=== PATIENT | male | born 1935 ===

== ENCOUNTER 2024-12-07 19:08 | Outpatient (NON) | payer MEDICARE, SELFPAY ==
--- OUTSIDE RECORDS SUMMARY | 2024-12-07 19:24 | XMS_ITS | Referral Summary ---
Author Organization [facility] A Address [address] [place] [address] Care Team Providers Care Lead Furnace Operator Name Role Phone Bryce Almeida MD Primary Care Provider [phone] Encounters Date Type Department Care Team Description 09/11/2024 10:45 AM CDT Office Visit [facility] at [address] [address] Nicole Wilkes PA Hand swelling (Primary Dx) from Last 3 Months Allergies Active Allergy Reactions Criticality Noted Date Comments Other Other (See comments) Low 09/06/2016 LINENS/PLASTIC BED COVERING OVER MATTRESS/CERTAIN SHEETS WITH BLEACH CAUSES BLISTERS NEEDS STERILE BEDDING LINENS/PLASTIC BED COVERING OVER MATTRESS/CERTAIN SHEETS WITH BLEACH CAUSES BLISTERS NEEDS STERILE BEDDING Povidone-Iodine Hives,Rash,Other (Se e comments) Medium 03/19/2015 Reaction: RASH----is okay with IV DYE Medications omeprazole (PriLOSEC) 20 mg capsule Take 1 capsule (20 mg total) by mouth daily 7 Active furosemide (LASIX) 20 mg tablet Take 1 tablet (20 mg total) by mouth daily 7 Active gabapentin (NEURONTIN) 300 mg capsule Take 2 capsules (600 mg total) by mouth nightly 7 Active multivitamin with minerals tablet Take 1 tablet by mouth daily 7 Active acetaminophen (TYLENOL) 325 mg tablet Take 2 tablets (650 mg total) by mouth daily Active beta carotene 10,000 unit capsule Take 7,500 Units by mouth daily Active losartan-hydroCH LOROthiazide (HYZAAR) 50-12.5 mg per tablet 2 Active allopurinoL (ZYLOPRIM) 100 mg tablet Take 1 tablet (100 mg total) by mouth 2 (two) times a day Active amLODIPine (NORVASC) 2.5 mg tablet Take 1 tablet (2.5 mg total) by mouth daily Active coenzyme Q10 100 mg capsule Take 3 capsules (300 mg total) by mouth daily Active warfarin (COUMADIN) 5 mg tablet Take 1 tablet (5 mg total) by mouth daily Active cholecalciferol (VITAMIN D-3) 16289 unit tablet Take 1 tablet (10,000 Units total) by mouth daily Active pyridoxine, vitamin B6, 200 mg tablet extended release Take 200 mg by mouth daily Active clopidogreL (PLAVIX) 75 mg tablet Take 1 tablet (75 mg total) by mouth daily Active ipratropium (ATROVENT) 21 mcg (0.03 %) nasal spray Administer 2 sprays into each nostril daily Active levothyroxine (SYNTHROID) 75 mcg tablet Take 1 tablet (75 mcg total) 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 Active ezetimibe (ZETIA) 10 mg tablet Take 1 tablet (10 mg total) by mouth daily 30 tablet 4 Active atorvastatin (LIPITOR) 40 mg tablet Take 1 tablet (40 mg total) by mouth every other day 4 02/25/20 25 Active warfarin (COUMADIN) 4 mg tablet Take 1 tablet (4 mg total) by mouth as directed 4 Active warfarin (COUMADIN) 1 mg tablet Take 1 tablet (1 mg total) by mouth as directed 4 Active isosorbide mononitrate ER (IMDUR) 60 mg 24 hr tablet Take 1 tablet (60 mg total) by mouth daily 90 tablet 3 5 07/05/19 26 Active carvediloL (COREG) 3.125 mg tablet TAKE 1 TABLET TWICE A DAY WITH MEALS 180 tablet 3 5 Active Active Problems Problem Noted Date Diagnosed Date Angina pectoris 02/21/2024 Assessment & Plan (02/21/2024 6:53 AM CDT): Differentials include stable angina, ACS (unstable angina vs NSTEMI), MSK pain, pleurisy, pneumonia, viral illness. Unlikely to be VTE as patient is within therapeutic range of inr (2.88) Initial troponins insignificant, EKG NSR with no ST elevation noted. Viral panel negative. No leukocytosis. S/p aspirin 324 mg po x1, nitrostat CXR nil acute Pt had seen Dr. Lord in office 02/15 for same issue, plan was for nuclear stress test at that point - Cardiology consult - Telemetry - Follow troponins - TTE - No need for therapeutic heparin at this time as troponins are insignificant - continue plavix, statin, beta rakesh - potential stress test - nitropaste prn for chest pain Obstructive sleep apnea 02/21/2024 Assessment & Plan (02/21/2024 2:39 AM CDT): On CPAP, mostly compliant - continue same Hypertension 02/21/2024 Assessment & Plan (02/21/2024 2:39 AM CDT): Per most recent office visit, on Losartan 50 mg po od, HCTZ 12.5 mg po od, Coreg 3.125 mg po bid, Amlodipine 2.5 mg daily - continue same Coronary artery disease 02/21/2024 Assessment & Plan (02/21/2024 2:39 AM CDT): Hx of PCI to the RCA and LAD per recent cardiology office visit TTE 11/2020: normal LV systolic function. EF 60-65%. Nuclear stress test 03/2019: normal myocardial perfusion, EF 64%. - continue plavix, statin, coreg 3.125 mg po bid, hyzaar 50-12.5 mg po od, lasix 20 mg po od Stage 3b chronic kidney disease 02/21/2024 Assessment & Plan (02/21/2024 1:05 AM CDT): Sees Dr. Mendez in the outpatient setting. Per recent office visit, baseline Cr 1.26-2.11. 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 Amlodipine recently reduced to 2.5 mg po od Cr on presentation 1.71, near baseline - continue to monitor renal function - avoid nephrotoxic agents History of sick sinus syndrome 02/21/2024 Assessment & Plan (02/21/2024 12:38 AM CDT): Noted on recent cardiology office note. 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, although he has been on warfarin since around 2003 and is uncertain as to if this was related to another clotting episode or not INR 2.88 on presentation; within therapeutic range Warfarin dose recently decreased from 6 mg to 5 mg po od - continue warfarin 5 mg po od Mixed hyperlipidemia 02/21/2024 Assessment & Plan (02/21/2024 1:07 AM CDT): Continue home atorvastatin 40 mg po od Hypothyroidism 02/21/2024 Assessment & Plan (02/21/2024 2:40 AM CDT): TSH today 1.16 - continue home levothyroxine 75 mcg po od Gastroesophageal reflux disease without esophagi tis 02/21/2024 Assessment & Plan (02/21/2024 1:11 AM CDT): On omeprazole 20 mg po od at home - continue with protonix while admitted Benign prostatic hyperplasia with lower urinary tract symptoms 02/21/2024 Assessment & Plan (02/21/2024 2:41 AM CDT): Previously on doxazosin Gout 02/21/2024 Assessment & Plan (02/21/2024 2:39 AM CDT): Continue home allopurinol 100 mg po bid Type 2 diabetes mellitus, wi out long-term current use of insulin 02/21/2024 Assessment & Plan (02/21/2024 2:41 AM CDT): Diet controlled. A1c today 6.3. - consistent carbohydrate diet - SSI History of nephrolithiasis 02/21/2024 Assessment & Plan (02/21/2024 1:03 AM CDT): s/p rt ureteral stenting and ECSWL History of prostate cancer 02/21/2024 Assessment & Plan (02/21/2024 2:18 AM CDT): Treated w/ prostatectomy in 1992 Anemia of chronic disease 02/21/2024 Assessment & Plan (02/21/2024 12:55 AM CDT): Secondary to CKD Hgb 10.9 on presentation Continue to monitor Hyponatremia 02/21/2024 Assessment & Plan (02/21/2024 1:25 AM CDT): Na 134 on presentation; likely transient - follow renal panel in a.m. Unstable angina 02/21/2024 Social History Tobacco Use Types Packs/Day Years Used Date Smoking Tobacco: Never Smokeless Tobacco: Never Tobacco Cessation:Counseling Given: Not Answered Alcohol Use Standard Drinks/Week Comments Yes 0 (1 standard drink = 0.6 oz pur e alcohol) occasional [employer] Utilities Answer Date Recorded In the past 12 months has [employer], gas, oil, or water [employer] threatened to shut off services in your home? No 02/21/2024 Social Connection and Isolat ion Panel [NHANES] Answer Date Recorded In a typical week, how many times do you talk on the phone with family, friends, or neighbors? More than three times a week 02/21/2024 How often do you get togethe r with friends or relatives? Twice a week 02/21/2024 How often do you attend chur ch or faith services? Never 02/21/2024 Do you belong to any clubs o r organizations such as jewish groups, unions, fraternal or athletic groups, or school groups? Yes 02/21/2024 How often do you attend meet ings of the clubs or organizations you belong to? 1 to 4 times per year 02/21/2024 Are you , , di vorced, , never , or living with a partner? 02/21/2024 Overall Financial Resource Strain (CARDIA) Answe r Date Recorded How hard is it for you to pa y for the very basics like food, housing, medical care, and heating? Not hard at all 02/21/2024 Hunger Vital Sign Answer Date Recorded Within the past 12 months, y ou worried that your food would run out before you got the money to buy more. Never true 02/21/20 24 Within the past 12 months, t he food you bought just didn't last and you didn't have money to get more. Never true 02/21/2024 PRAPARE - Transportation Answer Date Re corded In the past 12 months, has l ack of transportation kept you from medical appointments or from getting medications? No 02/03 In the past 12 months, has l ack of transportation kept you from meetings, work, or from getting things needed for daily living? No 02/21/2024 Housing Stability Vital Sign Answer Logan e Recorded In the last 12 months, was t here a time when you were not able to pay the mortgage or rent on time? No 02/21/2024 In the past 12 months, how m any times have you moved where you were living? 0 02/21/2024 At any time in the past 12 m [facility], were you homeless or living in a jail (including now)? No 02/21/2024 Personal Safety Answer Date Recorded Have you ever been in or are you currently in a harmful physical or emotional relationship or is someone making you feel afraid or unsafe? Denies 04/23/2024 Education Answer Date Recorded What is the highest level of school you have completed or the highest degree you have received? 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 Gender Identity Not on file Sexual Orientation Not on file Last Filed Vital Signs Vital Sign Reading Time Taken Comments Blood Pressure 138/74 09/11/2024 10:43 AM CDT Pulse 68 09/11/2024 10:43 AM CDT Temperature 36.9 C (98.4 F) 09/11/2024 10:43 AM CDT Respiratory Rate 20 09/11/2024 10:43 AM CDT Oxygen Saturation 99% 09/11/2024 10:43 AM CDT Inhaled Oxygen Concentration - - Weight 113.9 kg (251 lb) 09/11/2024 10:43 AM CDT Height 180.3 cm (5' 11) 09/11/2024 10:43 AM CDT Body Mass Index 35.01 09/11/2024 10:43 AM CDT Plan of Treatment Not on file Medical Devices Implanted Type Area Supervisor Grounds Device Identifier Shelf Expiration Date Model / Serial / Lot [employer]af Stent Coronary Drug Eluting Rapid Exchange Synergy Xd [id number] [employer] [id number] - [id number] Implanted:Qty: 1 on 02/23/2024 by Micky Fried MD at [facility] [employer] 11/07/2025 [id number] / / [id number] [employer] Copper Mobile Synergy Xd Monorail 3.5mm 28mm 144cm Delivery System 1 Access [id number] - [id number] Implanted:Qty: 1 on 02/23/2024 by Micky Fried MD at [facility] [employer] 08/29/2025 [id number] 350 / / [id number] [employer] Angio-Seal Vip 6fr Closere Device [id number] - [id number] Implanted:Qty: 1 on 02/23/2024 by Micky Fried MD at [facility] [employer] 09/17/2024 [id number] / / [id number] Procedures Procedure Name Priority Date/Time Associated Diagnosis Comments BASIC METABOLIC PANEL Routine 03/29/2024 3:17 PM CDT Coronary artery disease involving kasaan coronary artery of kasaan heart without angina pectoris HEMOGLOBIN A1C Add-On 02/20/2024 9:51 PM CDT from Last 3 Months or Most Recently Relevant to Health Maintenance Results * (ABNORMAL) Basic metabolic panel (03/29/2024 3:17 PM CDT) Glucose 119 65 - 139 mg/dL [facility] Comment: Non-fasting reference interval BUN 51(H) 7 - 25 mg/dL [facility] Creatinine 1.77(H) 0.70 - 1.22 mg/dL [facility] eGFR 36(L) > OR = 60 mL/min/1.7 3m2 [facility] BUN/creat ratio 29(H) 6 - 22 (calc) [facility] Sodium 138 135 - 146 mmol/L [facility] Potassium, pl 4.2 3.5 - 5.3 mmol/L [facility] Chloride 103 98 - 110 mmol/L [facility] CO2 28 20 - 32 mmol/L [facility] Calcium 8.4(L) 8.6 - 10.3 mg/dL [facility] Blood 03/29/2024 3:17 PM CDT 03/29/2024 3:18 PM CDT Narrative [facility] - 03/30/2024 5:05 AM CDT FASTING:NO FASTING: NO Juan Lord MD LAB BLOOD ORDERABLES Final Result [facility] [address] [place] [address] * (ABNORMAL) Hemoglobin A1c (02/20/2024 9:51 PM CDT) Hgb A1C 6.2(H) 4.0 - 5.6 % Estimated Average Glucose 131 mg/dL [facility] Comment: The ADA recommends reporting an estimated Average Glucose (eAG) with all Hemoglobin A1c results using the equation derived from a study of 507 normal and diabetic adults. Minority populations were underrepresented and children were not included. (Diabetes Care 31:4305-4543, 2008). The eAG is not equivalent to a fasting glucose. Blood 02/20/2024 9:51 PM CDT 02/21/2024 12:51 AM CDT Sowmya Elizabeth MD LAB BLOOD ORDERABLES Fi nal Result [facility] ([place]) [facility] [place] [address] from Last 3 Months or Most Recently Relevant to Health Maintenance Insurance T MEDICARE T MEDICARE Advance Directives For more information, please contact: [phone] * Full Code (Latest Code Status on File) Date Activated Date Inactivated Comments 02/22/2024 6:00 PM 02/24/2024 4:08 PM * Full Code Date Activated Date Inactivated Comments 02/21/2024 12:08 AM 02/22/2024 6:00 PM Care Teams Lead Furnace Operator Relationship Specialty Start Date End Date Bryce Almeida MD [address] [place] [address] [facility] - General 03/29/19
--- OUTSIDE RECORDS SUMMARY | 2024-12-07 19:24 | XMS_ITS | Encounter Summary ---
Author Organization [facility] Address [address] [place] [address] Phone Care Team Providers Care Hospice Director Name Role Phone Bryce Almeida MD Primary Care Provider Chelo Soriano MD Unavailable Annette Ibarra APRN, [facility] Unavailable Reason for Visit * Reason Comments Medication Refill Encounter Details Date Type Department Care Team (Late st Contact Info) Description 08/20/2023 Refill [facility] - Internal Medicine [place] [address] [place] [address] Bryce Almeida MD [address] [place] [address] Medication Refill Social History Tobacco Use Types Packs/Day Years Used Date Smoking Tobacco: Never Passive Smoke Exposure: Never Smokeless Tobacco: Never Alcohol Use Standard Drinks/Week Comments No 0 (1 standard drink = 0.6 oz pur e alcohol) Rarely [facility] Utilities Answer Date Recorded In the past 12 months has [employer], gas, oil, or water company threatened to shut off services in your home? No 07/18/2023 Social Connection and Isolation Panel Answer Date Recorded In a typical week, how many times do you talk on the phone with family, friends, or neighbors? More than three times a week 07/18/2023 How often do you get togethe r with friends or relatives? More than three times a week 07/18/2023 How often do you attend chur ch or evangelical services? Never 07/18/2023 Do you belong to any clubs o r organizations such as oriental orthodox groups, unions, fraternal or athletic groups, or school groups? No 07/18/2023 How often do you attend meet ings of the clubs or organizations you belong to? Never 07/18/2023 Are you , , di vorced, , never , or living with a partner? 07/18/2023 AUDIT-C Answer Date Recorded Q1: How often do you have a drink containing alcohol? Never 07/18/2023 Q2: How many drinks containi ng alcohol do you have on a typical day when you are drinking? Patient does not drink Q3: How often do you have si x or more drinks on one occasion? Never 07/18/2023 Overall Financial Resource Strain (CARDIA) Answe r Date Recorded How hard is it for you to pa y for the very basics like food, housing, medical care, and heating? Not hard at all 07/18/2023 PHQ-2 Answer Date Recorded Total Score - Questions 1-9 0 07/06 [facility] - Occupational Stress Questionnaire Answer Date Recorded Do you feel stress - tense, restless, nervous, or anxious, or unable to sleep at night because your mind is troubled all the time - these days? Not at all 07/18/2023 Exercise Vital Sign Answer Date Recorde d On average, how many days pe r week do you engage in moderate to strenuous exercise (like a brisk walk)? 0 days 07/18/2023 On average, how many minutes do you engage in exercise at this level? 0 min 07/18/2023 Hunger Vital Sign Answer Date Recorded Within the past 12 months, y ou worried that your food would run out before you got the money to buy more. Never true 07/18/19 24 Within the past 12 months, t he food you bought just didn't last and you didn't have money to get more. Never true 07/18/2023 PRAPARE - Transportation Answer Date Re corded In the past 12 months, has l ack of transportation kept you from medical appointments or from getting medications? No 07/06 In the past 12 months, has l ack of transportation kept you from meetings, work, or from getting things needed for daily living? No 07/18/2023 Housing Stability Vital Sign Answer Logan e Recorded In the last 12 months, was t here a time when you were not able to pay the mortgage or rent on time? No 07/18/2023 In the last 12 months, how many places have you lived? 1 07/18/2023 In the last 12 months, was t here a time when you did not have a steady place to sleep or slept in a nursing home (including now)? No 07/18/2023 Sexually Active Control Partners Comments Not Currently Sex and Gender Information Value Date Recorded Sex Assigned at Not on file Legal Sex Male 11:43 PM CDT Gender Identity Not on file Sexual Orientation Not on file documented as of this encounter Miscellaneous Notes * Telephone Encounter - Misty Soliman RN - 08/21/2023 10:04 AM CDT Medication failed the protocol, provider to review and approve the medication order if appropriate. Requested Prescriptions Pending Prescriptions Disp Refills warfarin (COUMADIN) 4 MG Tablet [Pharmacy Med Name: WARFARIN TABS 4MG] 90 Tablet 3 Sig: TAKE 1 TABLET DAILY Warfarin Protocol Failed - 08/20/2023 11:37 PM Failed - CBC on record in the past year WBC Date Value Ref Range Status 07/29/2019 7.19 4.00 - 12.00 10(3)/mcL Final WBC ESTERASE Date Value Ref Range Status 07/29/2019 Negative Negative Final RBC Date Value Ref Range Status 07/29/2019 3.50 (L) 4.40 - 5.80 10(6)/mcL Final HEMATOCRIT (HCT) Date Value Ref Range Status 07/29/2019 34.1 (L) 38.0 - 50.0 % Final HEMOGLOBIN (HGB) Date Value Ref Range Status 07/29/2019 11.3 (L) 13.0 - 16.5 g/dL Final [facility] Date Value Ref Range Status 07/29/2019 97.4 (H) 82.0 - 96.0 fL Final [facility] Date Value Ref Range Status 07/29/2019 32.3 (H) 26.0 - 32.0 pg Final [facility] Date Value Ref Range Status 07/29/2019 33.1 31.0 - 36.0 g/dL Final Failed - Patient does not have referral for nurse managed warfarin, please send to provider for approval Passed - Visit with relevant provider in past 12 months or upcoming 90 days Recent Visits Date Type Provider Dept 08/02/23 Telemedicine Natalia Hernandez, MADIHA [facility] [place] 07/18/23 Office Visit Bryce Almeida MD [facility] [place] 04/12/23 Office Visit Bryce Almeida MD [facility] [place] 01/04/23 Office Visit Bryce Almeida MD [facility] [place] 09/27/22 Office Visit [facility]meida MD [facility] [place] Showing recent visits within past 365 days and meeting all other requirements Future Appointments Date Type Provider Dept 10/17/23 Appointment Bryce Almeida MD [facility] [place] Showing future appointments within next 90 days and meeting all other requirements Passed - Display Most Recent Dose (if blank, no data is available, check Anticoagulation activity) Passed - INR on record in the past 6 weeks INR Date Value Ref Range Status 07/10/2023 1.9 Final 04/12/2023 3.2 (A) 0.9 - 1.1 Final furosemide (LASIX) 20 MG Tablet [Pharmacy Med Name: FUROSEMIDE TABS 20MG] 90 Tablet 3 Sig: TAKE 1 TABLET DAILY Diuretics Protocol Failed - 08/20/2023 11:37 PM Failed - Serum potassium on record in past 12 months No results found for: POTASSIUM, POCTK Failed - Serum sodium on record in past 12 months No results found for: SODIUM Failed - GFR on record in past 12 months No results found for: GFRNA Passed - Blood pressure on record in past 12 months Clinician-entered: BP Readings from Last 3 Encounters: 07/18/23 132/68 04/12/23 126/52 01/04/23 114/56 Patient-entered: No data recorded Passed - Visit with relevant provider in past 12 months or upcoming 90 days Recent Visits Date Type Provider Dept 08/02/23 Telemedicine Natalia Hernandez PAC [facility] [place] 07/18/23 Office Visit Bryce Almeida MD [facility] [place] 04/12/23 Office Visit Bryce Almeida MD [facility] [place] 01/04/23 Office Visit Bryce Almeida MD [facility] [place] 09/27/22 [facility] [place] Show[facility] recent visits within past 365 days and meeting all other requirements Future Appointments Date Type Provider Dept 10/17/23 Appointment Bryce Almeida MD [facility] [place] Showing future appointments within next 90 days and meeting all other requirements documented in this encounter Plan of Treatment Upcoming Encounters Date Type Department Care Team (Late st Contact Info) Description 01/01/2025 11:40 AM CDT Office Visit [facility] - Internal Medicine [place] [address] [place] [address] Bryce Almeida MD [address] [place] [address] documented as of this encounter Visit Diagnoses Not on filedocumented in this encounter Additional Health Concerns Infection Onset Date Last Indicated Resolved Time Respiratory Rule-Out 05/21/2024 05/21/2024 024 9:50 AM PURCHASING DIRECTOR COVID - 19 05/21/2024 05/21/2024 05/21/2024 9:49 AM PURCHASING DIRECTOR Assessment Noted Time PHQ-9 Depression Total Score: 0 07/18/19 24 11:25 AM PURCHASING DIRECTOR documented as of this encounter Care Teams Hospice Director Relationship Specialty Start Date End Date Bryce Almeida MD [address] [place] [address] PCP - General Internal Medicine 07/21/15 Chelo Soriano MD [address] [place] [address] General Surgery 10/13/15 Annette Ibarra APRN, [facility] [address] [place] [address] Nurse Practitioner Advanced Practice Nurse 05/08/24 documented as of this encounter
--- OUTSIDE RECORDS SUMMARY | 2024-12-07 19:24 | XMS_ITS | Encounter Summary ---
Author Organization [facility] Address [address] [place] [address] Phone Care Team Providers Care Rod Bending Machine Operator Name Role Phone Bryce Almeida MD Primary Care Provider Chelo Soriano MD Unavailable Annette Ibarra APRN, BINGO ATTENDANT Unavailable Reason for Visit * Reason Comments Medication Refill Encounter Details Date Type Department Care Team (Late st Contact Info) Description 08/01/2023 Refill [facility] - Internal Medicine [place] [address] [place] [address] Bryce Almeida MD [address] [place] [address] Medication Refill Social History Tobacco Use Types Packs/Day Years Used Date Smoking Tobacco: Never Passive Smoke Exposure: Never Smokeless Tobacco: Never Alcohol Use Standard Drinks/Week Comments No 0 (1 standard drink = 0.6 oz pur e alcohol) Rarely [facility] Utilities Answer Date Recorded In the past 12 months has [email or web address] electric, gas, oil, or water company threatened [...] often do you attend chur ch or sikh services? Never 07/18/2023 Do you belong to any clubs o r organizations such as jainism groups, unions, fraternal or athletic groups, or [...] Total Score - Questions 1-9 0 07/06 [facility] - Occupational Stress [...] place to sleep or slept in a halfway (including now)? No 07/18/2023 Sexually Active Control Partners Comments Not Currently Sex and Gender Information Value Date Recorded Sex Assigned at Not on file Legal Sex Male 11:43 PM CDT Gender Identity Not on file Sexual Orientation Not on file documented as of this encounter Miscellaneous Notes * Telephone Encounter - Misty Soliman RN - 08/02/2023 8:31 AM CST Medication failed the protocol, provider to review and approve the medication order if appropriate. Requested Prescriptions Pending Prescriptions Disp Refills levothyroxine (SYNTHROID) 50 MCG Tablet [Pharmacy Med Name: L-THYROXINE (SYNTHROID) TABS 50MCG] 90 Tablet 3 Sig: TAKE 1 TABLET DAILY Thyroid Hormones Protocol Failed - 08/01/2023 11:26 PM Failed - Normal TSH in past 12 months No results found for: TSH Passed - Visit with relevant provider in past 12 months or upcoming 90 days Recent Visits Date Type Provider Dept 07/18/23 Office Visit Bryce Almeida MD [facility] [place] 04/12/23 Office Visit Bryce Almeida MD [facility] [place] 01/04/23 Office Visit Bryce Almeida MD [facility] [place] 09/27/22 Office Visit Bryce Almeida MD [facility] [place] Showing recent visits within past 365 days and meeting all other requirements Future Appointments Date Type Provider Dept 10/17/23 Appointment Bryce Almeida MD [facility] [address] Showing future appointments within next 90 days and meeting all other requirements N PIPE MAKER METAL documented in this encounter Plan of Treatment Upcoming Encounters Date Type Department Care Team (Late st Contact Info) Description 01/01/2025 11:40 AM CDT Office Visit [facility] - Internal Medicine - [place] [address] [place] [id number] Bryce Almeida MD [address] [place] [address] documented as of this encounter Visit Diagnoses Not on filedocumented in this encounter Additional Health Concerns Infection Onset Date Last Indicated Resolved Time Respiratory Rule-Out 08/02/2023 08/02/2023 024 2:58 PM ORGAN PIPE MAKER METAL Influenza 08/02/2023 08/02/2023 08/09/2023 12:1 6 AM ORGAN PIPE MAKER METAL Respiratory Rule-Out 05/21/2024 05/21/2024 024 9:50 AM ORGAN PIPE MAKER METAL COVID - 19 05/21/2024 05/21/2024 05/21/2024 9:49 AM ORGAN PIPE MAKER METAL Assessment Noted Time PHQ-9 Depression Total Score: 0 07/18/19 24 11:25 AM ORGAN PIPE MAKER METAL documented as of this encounter Care Teams Rod Bending Machine Operator Relationship Specialty Start Date End Date Bryce Almeida MD [address] [place] [address] PCP - General Internal Medicine 07/21/15 Chelo Soriano MD [address] [place] [address] General Surgery 10/13/15 Annette Ibarra APRN, BINGO ATTENDANT [address] [place] [address] Nurse Practitioner Advanced Practice Nurse 05/08/24 documented as of this encounter
--- OUTSIDE RECORDS SUMMARY | 2024-12-07 19:24 | XMS_ITS | Continuity of Care Document ---
Author Name [facility] Organization [facility] Care Team Providers Care Nutrition Faculty Member Name Role Phone [facility] Unavailable Unavailable Problems Combined list of problems from Department of Defense and [facility] Affairs facilities. It does not include entries that were removed or entered in error. Problem Status Onset Date Problem Type Date of Resolution Comments Source Anemia Active Condition [facility] Arthritis Active Condition [facility] Benign essential hypertension Active Condition [facility] Benign hypertension Active Condition [facility] Blood glucose abnormal Active Condition [facility] Coronary arteriosclerosis Active Condition Sep 14 3 Entered By: ANISH NICOLE Comment: 1 stent 2008 [facility] Disorder of hip joint Active Condition Sep 14, 2012 Entered By: ANISH NICOLE Comment: Lt hip replacement 2012 Entered By: ANISH NICOLE Comment: Rt hip replacement 1990 [facility] Gastroesophageal Reflux Disease Active Condition [facility] Gout Active Condition [facility] Hernia of anterior abdominal wall Active Condition [facility] Hyperlipidemia Active Condition [facility] Hypothyroidism Active Condition [facility] Knee pain Active Condition [facility] Lumbar post-laminectomy syndrome Active Condition [facility] Malignant tumor of prostate Active Condition Sep 14, 2012 Entered By: ANISH NICOLE Comment: prostatectomy 1993 per vet [facility] Neuropathy Active Condition [facility] Obesity Active Condition [facility] Sleep apnea Active Condition Sep 14, 2012 Entered By: ANISH NICOLE Comment: nonVA CPAP [facility] Diagnosis: ICD-10-CM H25.813 Combined forms of age-related cataract, bilateral Active Diagnosis [facility] Diagnosis: ICD-10-CM H25.13 Age-related nuclear cataract, bilateral Active Diagnosis [facility] Diagnosis: ICD-10-CM H90.3 Sensorineural hearing loss, bilateral Active Diagnosis [facility] Medications Combined list of outpatient medications from Department of Defense and Veterans Affairs facilities.Medications provided include 1) outpatient medications from the last 15 months, and 2) patient-reported medications. Medication Details Route Status Patient Instructions Prescription Expires Prescription Number Last Dispense Date Ordering Provider Order Date Order Qty Source ASPIRIN 81MG TAB,EC TAKE ONE TABLET BY MOUTH ONCE A DAY ORAL ACTIVE ANISH NICOLE 2012 [facility] CARVEDILOL 25MG TAB TAKE ONE-HALF TABLET BY MOUTH TWICE A DAY ORAL ACTIVE ANISH NICOLE 2014 [facility] CHOLECALCIF MONIQUE 25MCG (1,000UNIT) TAB TAKE ONE TABLET BY MOUTH ONCE A DAY ORAL ACTIVE ANISH NICOLE 2012 [facility] DOXAZOSIN MESYLATE 4MG TAB TAKE ONE-HALF TABLET BY MOUTH AT BEDTIME ORAL ACTIVE ANISH NICOLE 2012 [facility] FISH OIL 1000MG (500MG DHA/EPA) CAP,ORAL TAKE 1 CAPSULE BY MOUTH TWICE A DAY ORAL ACTIVE ANISH NICOLE 2012 [facility] FUROSEMIDE 20MG TAB TAKE ONE TABLET BY MOUTH THREE TIMES PER WEEK ORAL ACTIVE ANISH NICOLE 2013 [facility] GABAPENTIN 300MG CAP TAKE 2 CAPSULES BY MOUTH TWICE A DAY ORAL ACTIVE RONY NICOLEA A 2012 [facility] HYDROCHLORO THIAZIDE 12.5MG/LOSA RTAN POTASSIUM 50MG TAB TAKE ONE TABLET BY MOUTH EVERY MORNING ORAL ACTIVE ANISH NICOLE 2013 [facility] LEVOTHYROXI NE NA 50MCG TAB (SYNTHROID) TAKE ONE TABLET BY MOUTH EVERY MORNING BEFORE A MEAL ORAL ACTIVE ANISH NICOLE 2012 [facility] MULTIVITAMI NS CAP/TAB TAKE ONE TABLET BY MOUTH ONCE A DAY ORAL ACTIVE ANISH NICOLE 2013 [facility] NORTRIPTYLI NE HCL 25MG CAP TAKE 1 CAPSULE BY MOUTH ONCE A DAY ORAL ACTIVE COREY, ANISH A 2012 [facility] OLOPATADINE HCL 0.2% SOLN,OPH INSTILL 1 DROP IN BOTH EYES ONCE A DAY FOR ALLERGIC CONJUNCT IVITIS OPHTHA LMIC ACTIVE 11/16/2025 [id number] SHANIQUE BARAJAS E 2024 10 [facility] PRAVASTATIN NA 40MG TAB TAKE ONE TABLET BY MOUTH EVERY EVENING ORAL ACTIVE COREY, ANISH A 2012 [facility] PROBENECID 500MG TAB TAKE ONE TABLET BY MOUTH ORAL ACTIVE COREY, ANISH A 2012 [facility] PYRIDOXINE HCL 100MG TAB TAKE ONE TABLET BY MOUTH ONCE A DAY ORAL ACTIVE COREY, ANISH A 2012 [facility] TRAMADOL HCL 50MG TAB TAKE ONE TABLET BY MOUTH TWICE A DAY ORAL ACTIVE COREY, ANISH A 2012 [facility] WARFARIN NA 5MG TAB TAKE 1.5 TABLETS BY MOUTH EVERY EVENING ORAL ACTIVE ANISH NICOLE A 2012 [facility] Allergies, Adverse Reactions, Alerts Combined list of allergies from Department of Defense and Veterans Affairs facilities. It does not include entries that were removed or entered in error. Substance Category Reaction Severity Reaction type Status Date Reported Comments Source BETADINE Propensity to adverse reactions to drug (finding) Swelling active 09/14/2012 [facility] Immunizations Combined list of available immunizations from the Department of Defense and Veterans Affairs facilities. Immunization Series Date Given Administered By Site Reaction Lot Number CVX Code Drug Government Contracts Manager Status Comments Source INFLUENZA, UNSPECIFIED FORMULATION 2013 88 complet ed [facility] INFLUENZA, UNSPECIFIED FORMULATION 2012 88 complet ed [facility] INFLUENZA, UNSPECIFIED FORMULATION 2011 88 complet ed [facility] TDAP [address] [facility] PNEUMOCOCCAL, UNSPECIFIED FORMULATION 2005 109 complet ed [facility] Encounters Combined list of: 1) Encounters from Department of Veterans Affairs facilities going backup to the last 18 months, not all [place] inpatient encounters are included; 2) Encounters from the Department of Defense facilities going backup to 280 months. Location Location Details Encounter Type Encounter Number Reason For Visit Attending Provider ADM Date DC Date Status Disposition Source [facility] FITTING/CH ECKING 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 neural hearing loss, RADHA Lambert 06/22 [facility] TYMPANOMET RY & REFLEX THRESH [id number] Diagnos is: ICD-10- CM H90.3 Sensori neural hearing loss, RADHA Lambert 06/22 [facility] HEARING AID SUP/ACCESS /DEV [id number] Diagnos is: ICD-10- CM H90.3 Sensori neural hearing loss, NELY Kidd 09/25 [facility] COMPRE OPH EXAM EST PT 1/> [id number] Diagnos is: ICD-10- CM H25.13 Age-rel ated nuclear jeffrey thernandez A LLISON E 11/23 [facility] Outpatient Encounter [id number] 09/19 [facility] OFFICE O/P EST MOD 30 MIN [id number] Diagnos is: ICD-10- CM H25.813 Combine d forms of age-rel ated catarac thernandez,A LLISON E 11/15 [facility] Social History Combined list of available smoking, tobacco, and other social history from Department of Defense and Veterans Affairs facilities. Social History Type Response Date Comment Sourc e Tobacco smoking status NHIS LIFETIME NON-USER OF TOBACCO 10/31/2014 [facility] History of tobacco use LIFETIME NON-USER OF TOBACCO 09/30/2013 [facility] History of tobacco use QUIT TOBACCO >7 Y EARS AGO 09/14/2012 [facility]
--- OUTSIDE RECORDS SUMMARY | 2024-12-07 19:25 | XMS_ITS | Clinical Summary ---
Author Organization [facility] Address [address] [place] [address] Care Team Providers Care Lump Inspector Name Role Phone Bryce Almeida MD Primary Care Provider [phone] Allergies Active Allergy Reactions Criticality Noted Date [...] by mouth daily Active cholecalciferol (VITAMIN D-3) 80117 unit tablet Take 1 tablet (10,000 Units [...] 1 tablet (75 mcg total) by mouth teacher early childhood development before breakfast Active ezetimibe (ZETIA) 10 mg [...] mg po bid Type 2 diabetes mellitus, [facility] long-term current use of insulin 02/21/2024 Assessment [...] renal panel in a.m. Unstable angina 02/21/2024 Encounters Date Type Department Care Team Description 09/11/2024 10:45 AM CDT Office Visit [facility] at [address] [address] Nicole Wilkes PA Hand swelling (Primary Dx) from Last 3 Months Surgical History Surgery Date Site/Laterality Comments CARDIAC CATHETERIZATION CHOLECYSTECTOMY TOTAL KNEE ARTHROPLASTY Left TOTAL HIP ARTHROPLASTY Bilateral Medical History Medical History Date Comments Thyroid disease Chest pain Sleep apnea Chronic kidney disease Coronary artery disease 02/21/2024 Hypertension 02/21/2024 Obstructive sleep apnea 02/21/2024 History of DVT (deep vein thrombosis) 02/21/2024 Mixed hyperlipidemia 02/21/2024 Gastroesophageal reflux disease without esophagi tis 02/21/2024 Benign prostatic hyperplasia with lower urinary tract symptoms 02/21/2024 Gout 02/21/2024 Type 2 diabetes mellitus, [facility] long-term current use of insulin (HCC) 02/21/2024 History of nephrolithiasis 02/21/2024 History of prostate cancer 02/21/2024 Anemia of chronic disease 02/21/2024 Family History Medical History Relation Name Comments Heart disease Brother Stroke Father Cancer Maternal Grandfather Tuberculosis Maternal Grandmother Heart disease Mother Stroke Paternal Grandfather Stroke Paternal Grandmother Relation Name Status Comments Brother Father Maternal Grandfather Maternal Grandmother Mother Paternal Grandfather Paternal Grandmother Social History Tobacco Use Types Packs/Day Years Used Date Smoking Tobacco: Never Smokeless Tobacco: Never Tobacco Cessation:Counseling Given: Not Answered Alcohol Use Standard Drinks/Week Comments Yes 0 (1 standard drink = 0.6 oz pur e alcohol) occasional [facility] Utilities Answer Date Recorded In the past 12 months has th e electric, gas, oil, or water company threatened [...] often do you attend chur ch or confucianist services? Never 02/21/2024 Do you belong to any clubs o r organizations such as scientologist groups, unions, fraternal or athletic groups, or [...] any time in the past 12 m [facility], were you homeless or living in a detention (including now)? No 02/21/2024 Personal Safety Answer [...] on file Legal Sex Male 11:13 AM MUCK MINER Gender Identity Not on file Sexual Orientation Not on file Obstetrics History Last Filed Vital Signs Vital Sign Reading [...] 09/11/2024 10:43 AM CDT Plan of Treatment Health Maintenance Due Date Last Done Comments Albumin Creatinine Ratio, Urine 1935 Depression Screening 1935 Dilated Eye Exam 1935 Foot Exam 1935 Lipid Panel 1935 Hepatitis B Screening 09/03/1953 Well Visit 65+ 09/03/2000 Pneumococcal vaccine 65+ (2 of 2 - PPSV23) 08/13/2014 06/18/2014, 03/05/2006 DTaP/Tdap/Td Vaccine (2 - Td or Tdap) 06/05/2019 06/05/2009 Zoster Vaccine (3 of 3) 07/07/2020 05/12/2020, 03/04 Covid-19 Vaccine (3 - 2023-2 5 season) 2024 08/26/2020, 08/04/2020 Hemoglobin A1C 08/19/2024 02/20/2024 Fall Risk Assessment 02/23/2025 02/24/2024 eGFR 03/29/2025 03/29/2024, 02/04, 02/23/2024, Additional history exists Influenza Vaccine Completed 03/19/2024, , 02/11/2020, Additional history exists Medical Devices Implanted Type Area Oven Operator Device Identifier Shelf Expiration Date Model / Serial / Lot [employer] Stent Coronary Drug Eluting Rapid Exchange Synergy Xd 3.14g62nt [place] [employer] [id number] - [id number] Implanted:Qty: 1 on 02/23/2024 by Micky Fried MD at [facility] [employer] 11/07/2025 [id number] / / [id number] [employer] Synergy Xd Monorail 3.5mm 28mm 144cm Delivery System 1 Access [id number] - [id number] Implanted:Qty: 1 on 02/23/2024 by Micky Fried MD at [facility] [employer] 08/29/2025 [id number] 350 / / [id number] [employer]Finder Angio-Seal Vip 6fr Closere Device [id number] - [id number] Implanted:Qty: 1 on 02/23/2024 by Micky Fried MD at [facility] [employer] 09/17/2024 [id number] / / [id number] Procedures Procedure Name Priority Date/Time Associated Diagnosis Comments BASIC METABOLIC PANEL Routine 03/29/2024 3:17 PM CDT Coronary artery disease involving [place] coronary artery of [place] heart without angina pectoris HEMOGLOBIN A1C Add-On 02/20/2024 9:51 PM CDT from Last 3 Months or Most Recently Relevant to Health Maintenance Results * (ABNORMAL) Basic metabolic panel (03/29/2024 3:17 PM CDT) [facility] Glucose 119 65 - 139 mg/dL [facility] [...] LAB BLOOD ORDERABLES Final Result [facility] [address] [place] [address] * (ABNORMAL) Hemoglobin A1c (02/20/2024 9:51 PM CDT) Hgb A1C 6.2(H) 4.0 - 5.6 % Estimated Average Glucose 131 mg/dL [facility] ([place]) Comment: The ADA recommends reporting an estimated Average Glucose (eAG) with all Hemoglobin A1c results using the equation derived from a study of 507 normal and diabetic adults. Minority populations were underrepresented and children were not included. (Diabetes Care 31:7504-4971, 2008). The eAG is not equivalent to a fasting glucose. Blood 02/20/2024 9:51 PM CDT 02/21/2024 12:51 AM CDT Sowmya Elizabeth MD LAB BLOOD ORDERABLES Fi nal Result [facility] ([place]) 1 [facility] [place] [address] from Last 3 Months or Most Recently Relevant to Health Maintenance Insurance T MEDICARE AET MEDICARE Advance Directives For more information, please contact: [phone] * Full Code (Latest Code Status on File) Date Activated Date Inactivated Comments 02/22/2024 6:00 PM 02/24/2024 4:08 PM * Full Code Date Activated Date Inactivated Comments 02/21/2024 12:08 AM 02/22/2024 6:00 PM Care Teams Lump Inspector Relationship Specialty Start Date End Date [place] [address] [place] [address] PCP - General 03/29/19
--- OUTSIDE RECORDS SUMMARY | 2024-12-07 19:25 | XMS_ITS | Encounter Summary ---
Author Organization [facility] Address [address] [place] [address] Phone Care Team Providers Care Director Airport Operations Name Role Phone Bryce Almeida MD Primary Care Provider Chelo Soriano MD Unavailable Annette Ibarra APRN, ROAD FREIGHT FIRER Unavailable Reason for Visit * Reason Comments Medication Refill Encounter Details Date Type Department Care Team (Late st Contact Info) Description 05/05/2020 [facility] [address] [place] [address] Bryce Almeida MD [address] [place] [address] Medication Refill Social History Tobacco Use Types Packs/Day Years Used Date Smoking Tobacco: Never Smokeless Tobacco: Never Alcohol Use Standard Drinks/Week Comments No 0 (1 standard drink = 0.6 oz pur e alcohol) Rarely Sex and Gender Information Value Date Recorded Sex Assigned at Not on file Legal Sex Male 11:43 PM CDT Gender Identity Not on file Sexual Orientation Not on file documented as of this encounter Miscellaneous Notes * Telephone Encounter - Annette Dunlap RN - 05/06/2020 7:43 AM CST Please review and sign. STRY TREE PRUNER documented in this encounter Plan of Treatment Upcoming Encounters Date Type Department Care Team (Late st Contact Info) Description 01/01/2025 11:40 AM CDT Office Visit [facility] - Internal Medicine [place] [address] [place] [id number] Bryce Almeida MD [address] [place] [address] documented as of this encounter Visit Diagnoses Not on filedocumented in this encounter Additional Health Concerns Infection Onset Date Last Indicated Resolved Time COVID - 19 Confirmed 03/12/2022 03/12/2022 022 12:16 AM CDT COVID - 19 06/15/2022 06/15/2022 06/25/2022 12:1 6 AM FORESTRY TREE PRUNER Influenza 06/15/2022 06/15/2022 06/22/2022 12:1 6 AM FORESTRY TREE PRUNER Respiratory Rule-Out 08/02/2023 08/02/2023 024 2:58 PM FORESTRY TREE PRUNER Influenza 08/02/2023 08/02/2023 08/09/2023 12:1 6 AM FORESTRY TREE PRUNER Respiratory Rule-Out 05/21/2024 05/21/2024 024 9:50 AM FORESTRY TREE PRUNER COVID - 19 05/21/2024 05/21/2024 05/21/2024 9:49 AM FORESTRY TREE PRUNER documented as of this encounter Care Teams Director Airport Operations Relationship Specialty Start Date End Date Bryce Almeida MD [address] [place] [address] PCP - General Internal Medicine 07/21/15 Chelo Soriano MD [address] [place] [address] General Surgery 10/13/15 Annette Ibarra APRN, ROAD FREIGHT FIRER [address] [place] [address] Nurse Practitioner Advanced Practice Nurse 05/08/24 documented as of this encounter
--- OUTSIDE RECORDS SUMMARY | 2024-12-07 19:25 | XMS_ITS | Encounter Summary ---
Author Organization [facility] Address [address] [place] [address] Phone Care Team Providers Care Carpet Journeyman Name Role Phone Bryce Almeida MD Primary Care Provider [phone] Chelo Soriano MD Unavailable Annette Ibarra APRN, DISTRIBUTION DISPATCHER Unavailable Encounter Details Date Type Department Care Team (Late st Contact Info) Description 10/29/2024 Results Follow-Up [facility] - Internal Medicine [facility] [address] [place] [address] Bryce Almeida MD [address] [place] [address] PROTIME (PT) (PROTHROMBIN TIME) Social History Tobacco Use Types Packs/Day Years Used Date Smoking Tobacco: Never Passive Smoke Exposure: Never Smokeless Tobacco: Never Alcohol Use Standard Drinks/Week Comments No 0 (1 standard drink = 0.6 oz pur e alcohol) Rarely [facility] Utilities Answer Date Recorded In the past 12 months has e electric, gas, oil, or water company threatened to shut off services in your home? Patient declined 09/11/2024 Social Connection and Isolation Panel Answer Date Recorded In a typical week, how many times do you talk on the phone with family, friends, or neighbors? Patient declined 09/11/2024 How often do you get togethe r with friends or relatives? Patient declined 09/11/2024 How often do you attend jain or baptism serv ices? Patient declined 09/11/2024 Do you belong to any clubs o r organizations such as jain groups, unions, fraternal or athletic groups, or school groups? Patient declined 09/11/2024 How often do you attend meet ings of the clubs or organizations you belong to? Patient declined 09/11/2024 Are you , , di vorced, , never , or living with a partner? Patient declined 09/11/2024 AUDIT-C Answer Date Recorded Q1: How often do you have a drink containing alc ohol? Patient declined 09/11/2024 Q2: How many drinks containi ng alcohol do you have on a typical day when you are drinking? Patient declined 09/11/2024 Q3: How often do you have si x or more drinks on one occasion? Patient declined 09/11/2024 Overall Financial Resource Strain (CARDIA) Answe r Date Recorded How hard is it for you to pa y for the very basics like food, housing, medical care, and heating? Somewhat hard 09/11/2024 PHQ-2 Answer Date Recorded Total Score - Questions 1-9 0 06/06 [facility] - Occupational Stress Questionnaire Answer Date Recorded Do you feel stress - tense, restless, nervous, or anxious, or unable to sleep at night because your mind is troubled all the time - these days? Patient declined 09/11/2024 Exercise Vital Sign Answer Date Recorde d On average, how many days pe r week do you engage in moderate to strenuous exercise (like a brisk walk)? Patient declined On average, how many minutes do you engage in exercise at this level? Patient declined 09/11/2024 Hunger Vital Sign Answer Date Recorded Within the past 12 months, y ou worried that your food would run out before you got the money to buy more. Patient declined Within the past 12 months, t he food you bought just didn't last and you didn't have money to get more. Patient declined 02/2025 PRAPARE - Transportation Answer Date Re corded In the past 12 months, has l ack of transportation kept you from medical appointments or from getting medications? No 02/2025 In the past 12 months, has l ack of transportation kept you from meetings, work, or from getting things needed for daily living? No 09/11/2024 Housing Stability Vital Sign Answer Logan e [...] place to sleep or slept in a residential (including now)? No 07/18/2023 Housing Stability Vital Sign Answer Logan e Recorded In the last 12 months, was t here a time when you were not able to pay the mortgage or rent on time? No 09/11/2024 Number of Times Moved in the Last Year Not on fi le 09/11/2024 At any time in the past 12 m [facility], were you homeless or living in a residential (including now)? No 09/11/2024 Sexually Active Control Partners Comments Not Currently Sex and Gender Information Value Date Recorded Sex Assigned at Not on file Legal Sex Male 11:43 PM CDT Gender Identity Not on file Sexual Orientation Not on file documented as of this encounter Plan of Treatment Upcoming Encounters Date Type Department Care Team (Late st Contact Info) Description 01/01/2025 11:40 AM CDT Office Visit [facility] - Internal Medicine - [place] [address] [place] [address] Bryce Almeida MD [address] [place] [address] documented as of this encounter Visit Diagnoses Not on filedocumented in this encounter Additional Health Concerns Assessment Noted Time PHQ-9 Depression Total Score: 0 07/01/19 25 10:33 AM HEAD OF PRODUCT documented as of this encounter Care Teams Carpet Journeyman Relationship Specialty Start Date End Date Bryce Almeida MD [address] [place] [address] PCP - General Internal Medicine 07/21/15 Chelo Soriano MD [address] [place] [address] General Surgery 10/13/15 Annette Ibarra APRN, DISTRIBUTION DISPATCHER [address] [place] [address] Nurse Practitioner Advanced Practice Nurse 05/08/24 documented as of this encounter
--- OUTSIDE RECORDS SUMMARY | 2024-12-07 19:25 | XMS_ITS | Encounter Summary ---
Author Organization [facility] Address [address] [facility] [place] [address] Phone Care Team Providers Care Actuarial Assistant Name Role Phone Bryce Almeida MD Primary Care Provider Chelo Soriano MD Unavailable Annette Ibarra APRN, BATCH MIXER OPERATOR Unavailable Reason for Visit * Reason Comments Medication Refill Encounter Details Date Type Department Care Team (Late st Contact Info) Description 03/08/2020 [facility]ill [facility] [address] [place] [address] Bryce Almeida MD [address] [address] Medication Refill Social History Tobacco [...] encounter Miscellaneous Notes * Telephone Encounter - Machelle Benítez RN - 03/09/2020 4:25 PM CDT Pended to PCP documented in this encounter Plan of Treatment Upcoming Encounters Date Type Department Care Team (Late st Contact Info) Description 01/01/2025 11:40 AM CDT Office Visit [facility] - Internal Medicine [place] [address] [place] [id number] Bryce Almeida MD [address] [place] [address] documented as of this encounter Visit Diagnoses Not on filedocumented in this encounter Additional Health Concerns Infection Onset Date Last Indicated Resolved Time COVID - 19 Confirmed 03/12/2022 03/12/2022 022 12:16 AM CDT COVID - 19 06/15/2022 06/15/2022 06/25/2022 12:1 6 AM ACCESS ASSOC Influenza 06/15/2022 06/15/2022 06/22/2022 12:1 6 AM ACCESS ASSOC Respiratory Rule-Out 08/02/2023 08/02/2023 024 2:58 PM ACCESS ASSOC Influenza 08/02/2023 08/02/2023 08/09/2023 12:1 6 AM ACCESS ASSOC Respiratory Rule-Out 05/21/2024 05/21/2024 024 9:50 AM ACCESS ASSOC COVID - 19 05/21/2024 05/21/2024 05/21/2024 9:49 AM ACCESS ASSOC documented as of this encounter Care Teams Actuarial Assistant Relationship Specialty Start Date End Date Bryce Almeida MD [address] [place] [address] PCP - General Internal Medicine 07/21/15 Chelo Soriano MD [address] [place] [address] General Surgery 10/13/15 Annette Ibarra APRN, BATCH MIXER OPERATOR [address] [place] [address] Nurse Practitioner Advanced Practice Nurse 05/08/24 documented as of this encounter
--- OUTSIDE RECORDS SUMMARY | 2024-12-07 19:25 | XMS_ITS | Encounter Summary ---
Author Organization [facility] Address [address] [place] [address] Phone Care Team Providers Care Vascular Specialists Name Role Phone Bryce Almeida MD Primary Care Provider Chelo Soriano MD Unavailable Annette Ibarra APRN, ACCOUNTING OFFICER Unavailable Reason for Visit * Reason Comments Medication Refill Encounter Details Date Type Department Care Team (Late st Contact Info) Description 09/19/2023 Refill [facility] - Internal Medicine [place] [address] [place] [address] Bryce Almeida MD [address] [place] [address] Medication Refill Social History Tobacco Use Types Packs/Day Years Used Date Smoking Tobacco: Never Passive Smoke Exposure: Never Smokeless Tobacco: Never Alcohol Use Standard Drinks/Week Comments No 0 (1 standard drink = 0.6 oz pur e alcohol) Rarely [facility] Utilities Answer Date Recorded In the past 12 months has [employer] electric, gas, oil, or water company threatened [...] often do you attend chur ch or amish services? Never 07/18/2023 Do you belong to any clubs o r organizations such as latter day groups, unions, fraternal or athletic groups, or [...] Total Score - Questions 1-9 0 07/06 [facility] - Occupational [...] place to sleep or slept in a fdc (including now)? No 07/18/2023 Sexually Active Control Partners Comments Not Currently Sex and Gender Information Value Date Recorded Sex Assigned at Not on file Legal Sex Male 11:43 PM CDT Gender Identity Not on file Sexual Orientation Not on file documented as of this encounter Miscellaneous Notes * Telephone Encounter - Misty Soliman, RN - 09/19/2023 10:45 AM CDT Medication failed the protocol, provider to review and approve the medication order if appropriate. Requested Prescriptions Pending Prescriptions Disp Refills guaiFENesin-codeine (guaiFENesin AC) 100-10 MG/5ML Solution [Pharmacy Med Name: [id number] MG/5ML Oral Solution] 300 mL 0 Sig: TAKE 5 TO 10 ML BY MOUTH EVERY 6 HOURS NEEDED FOR COUGH Not Delegated - Cough Cold Allergy Combo Controlled Protocol Failed - 09/19/2023 10:32 AM Failed - This refill cannot be delegated Failed - Active on medication list Passed - Visit with relevant provider in past 12 months or upcoming 90 days Recent Visits Date Type Provider Dept 08/02/23 Telemedicine Natalia Hernandez PAC [facility] [place] 07/18/23 Office Visit Bryce Almeida MD [facility] [place] 04/12/23 Office Visit Bryce Almeida MD [facility] [place] 01/04/23 Office Visit Bryce Almeida MD [facility] [place] 09/27/22 Office Visit Bryce Almeida MD [facility] [place] Showing recent visits within past 365 days and meeting all other requirements Future Appointments Date Type Provider Dept 09/21/23 Appointment Bryce Almeida MD [facility] [place] 10/17/23 Appointment Bryce Almeida MD [facility] [place] Showing future appointments within next 90 days and meeting all other requirements documented in this encounter Plan of Treatment Upcoming Encounters Date Type Department Care Team (Late st Contact Info) Description 01/01/2025 11:40 AM CDT Office Visit [facility] - Internal Medicine [facility] [address] [place] [address] Bryce Almeida MD [address] [place] [address] documented as of this encounter Visit Diagnoses Diagnosis Cough documented in this encounter Additional Health Concerns Infection Onset Date Last Indicated Resolved Time Respiratory Rule-Out 05/21/2024 05/21/2024 024 9:50 AM MECHANIC COVID - 19 05/21/2024 05/21/2024 05/21/2024 9:49 AM MECHANIC Assessment Noted Time PHQ-9 Depression Total Score: 0 07/18/19 24 11:25 AM MECHANIC documented as of this encounter Care Teams Vascular Specialists Relationship Specialty Start Date End Date Bryce Almeida MD [address] [place] [address] PCP - General Internal Medicine 07/21/15 Chelo Soriano MD [address] [place] [address] General Surgery 10/13/15 Annette Ibarra APRN, ACCOUNTING OFFICER [address] [place] [address] Nurse Practitioner Advanced Practice Nurse 05/08/24 documented as of this encounter
--- OUTSIDE RECORDS SUMMARY | 2024-12-07 19:25 | XMS_ITS | Clinical Summary ---
Author Organization [facility] Address [address] [place] [address] Phone Care Team Providers Care Control Systems Technician Name Role Phone Bryce Almeida MD Primary Care Provider Chelo Soriano MD Unavailable Annette Ibarra APRN, SPEECH PATHOLOGIST Unavailable Allergies Active Allergy Reactions Criticality Noted Date Comments Povidone Iodine Hives,Rash Other Other (see Comments) 09/06/2016 LINENS/PLASTIC BED COVERING OVER MATTRESS/CERTAIN SHEETS WITH BLEACH CAUSES BLISTERS NEEDS STERILE BEDDING Medications acetaminophen (TYLENOL) 325 MG TabletIndications :arthritis Take 650 mg by mouth once. Every morning Indications: arthritis Active multiple vitamins-minerals Tablet Take 1 Tab by mouth daily. 30 Tab 0 09/11/19 17 Active Cholecalciferol (VITAMIN D3 PO) Take by mouth. Active triamcinolone (KENALOG) 0.1 % Cream APPLY CREAM EXTERNALLY TWICE DAILY 60 g 12/16/19 23 Active carvedilol (COREG) 3.125 MG Tablet TAKE 1 TABLET TWICE A DAY 180 Tablet 3 04/21/20 23 Active levothyroxine (SYNTHROID) 75 MCG TabletIndications :Other specified hypothyroidism Take 1 Tablet by mouth daily. 90 Tablet 3 11/13/19 24 Active amLODIPine (NORVASC) 2.5 MG Tablet Take 1 Tablet by mouth daily. 90 Tablet 3 12/19/19 24 Active omeprazole (PriLOSEC) 20 MG CAPSULE DELAYED RELEASE TAKE 1 CAPSULE DAILY 90 Capsule 3 01/16/20 24 Active polycarbophil calcium (FiberCon) 625 MG Tablet Take 625 mg by mouth daily. Active allopurinol (ZYLOPRIM) 100 MG Tablet TAKE 1 TABLET TWICE A DAY 180 Tablet 3 03/04/20 24 Active clopidogrel (PLAVIX) 75 MG Tablet TAKE 1 TABLET DAILY 90 Tablet 3 03/20/20 24 Active Misc. 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 Active isosorbide mononitrate (IMDUR) 30 MG TABLET SR 24 HR Take 30 mg by mouth daily. 05/10/20 24 2024 Active nitroGLYCERIN (NITROSTAT) 0.4 MG SL Tablet 1 Tablet by Sublingual route every 5 minutes as needed for Chest pain. 25 Tablet 05/21/20 24 Active albuterol 108 (90 Base) MCG/ACT Aerosol Solution take 2 Puffs by inhalation every 4 hours as needed for Wheezing or Cough. 18 g 07/01/19 25 Active guaiFENesin-codei ne (guaiFENesin AC) 100-10 MG/5ML SolutionIndicatio ns:Cough TAKE 5 TO 10 ML BY MOUTH EVERY 6 HOURS NEEDED FOR COUGH 280 mL 07/01/19 25 Active gabapentin (NEURONTIN) 300 MG Capsule Take 1 Capsule by mouth daily. 90 Capsule 1 07/31/19 25 Active levothyroxine (SYNTHROID) 25 MCG Tablet Take 1 tablet daily with 50 mcg tablet to make 75 mcg per day 90 Tablet 07/31/19 25 Active furosemide (LASIX) 20 MG Tablet TAKE 1 TABLET DAILY 90 Tablet 3 08/15/19 25 Active warfarin (COUMADIN) 4 MG Tablet TAKE 1 TABLET DAILY 90 Tablet 3 08/16/19 25 Active doxazosin (CARDURA) 2 MG Tablet Take 1 Tablet by mouth daily. 90 Tablet 1 09/27/19 25 Active atorvastatin (LIPITOR) 40 MG Tablet TAKE 1 TABLET DAILY 90 Tablet 3 11/13/19 25 Active warfarin (COUMADIN) 1 MG Tablet TAKE 1 TABLET DAILY 90 Tablet 3 11/30/19 25 Active warfarin (COUMADIN) 1 MG Tablet TAKE 1 TABLET DAILY 90 Tablet 3 12/06/19 24 2024 Discontinued atorvastatin (LIPITOR) 40 MG Tablet TAKE 1 TABLET DAILY 90 Tablet 1 05/16/20 24 2024 Discontinued Active Problems Problem Noted Date Diagnosed Date Bilateral lower extremity edema 09/12/2024 Anticoagulant long-term use 05/01/2024 Impaired gait and mobility 04/02/2024 H/O bilateral hip replacements 04/02/2024 Rash 04/01/2024 Overview (04/01/2024): Patient has rash suggestive of eczema in the vertex part of scalp. 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 09/14/2020 Diabetic polyneuropathy asso ciated with type 2 diabetes mellitus 09/14/2020 BPH with obstruction/lower urinary tract symptom s 06/15/2020 Essential hypertension, benign 04/06/2020 Mixed hyperlipidemia 04/06/2020 Coronary artery disease invo lving [place] coronary artery of [place] heart without angina pectoris 04/06/2020 Other specified hypothyroidism 04/06/2020 GERD without esophagitis 04/06/2020 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 04/06/2020 Hyperuricemia 04/06/2020 Type 2 diabetes mellitus wit h complication, without long-term current use of insulin Obesity Resolved Problems Problem Noted Date Diagnosed Date Resolved Date Osteoarthritis of lumbar spine 04/02/2024 05/01/2024 Stage 3b chronic kidney disease 03/22/2022 04/12/2023 Decubitus ulcer, buttock Carcinoma 09/14/2020 Encounters Date Type Department Care Team Description 11/28/2024 Refill [facility] - Internal Medicine - [place] [address] [place] [address] Natalia Hernandez, PAC Medication Refill 11/11/2024 Refill [facility] [address] [place] [address] Bryce Almeida MD Medication Refill 10/29/2024 Results Follow-Up [facility] [address] [place] [address] Bryce Almeida MD PROTIME (PT) (PROTHROMBIN TIME) 10/24/2024 Results Follow-Up [address] [address] Natalia Hernandez, PAC PROTIME (PT) (PROTHROMBIN TIME) 10/23/2024 Telephone [facility] [address] [place] [address] Bryce Almeida MD 10/22/2024 Results Follow-Up [address] [id number] Natalia Hernandez, PAC POCT GLYCOSYLATED HEMOGLOBIN, HEPATIC FUNCTION PANEL, THYROID STIMULATING HORMONE (TSH), THYROXINE (T4) FREE 10/08/2024 Telephone [facility] [address] [place] [address] Bryce Almeida MD 10/06/2024 Results Follow-Up [facility] [address] [place] [address] Bryce Almeida MD US THYROID 10/01/2024 11:15 AM CDT Office Visit [facility] [address] [place] [address] Bryce Almeida MD Type 2 diabetes mellitus with complication, without long-term current use of insulin (HCC) (Primary Dx); Essential hypertension, benign; Mixed hyperlipidemia; Other specified hypothyroidism; Stage 4 chronic kidney disease (HCC); 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 (HCC) Discharge Disposition: Discharged to home or Selfcare 10/01/2024 Travel 09/30/2024 Results Follow-Up [facility] [address] [place] [address] Bryce Almeida MD PROTIME (PT) (PROTHROMBIN TIME) 09/26/2024 7:08 AM CDT - 09/26/2024 11:59 PM CDT Hospital Encounter [facility] Ultrasound [address] [place] [address] Bryce Almeida MD Discharge Disposition: Discharged to home or Selfcare 09/26/2024 Travel 09/25/2024 [facility] [address] [place] [address] Bryce Almeida MD Medication Refill 09/24/2024 Telephone [facility] [address] [place] [address] Bryce Almeida MD 09/12/2024 2:30 PM CDT Office Visit [facility] [address] [place] [address] Bryce Almeida MD Contusion of scalp, sequela (Primary Dx); Thyroid nodule; Contusion of right hand, sequela; Anticoagulant long-term use; Bilateral lower extremity edema Discharge Disposition: Discharged to home or Selfcare 09/11/2024 11:44 AM CDT - 09/11/2024 1:15 PM CDT Emergency [facility] Emergency [address] [place] [address] Cam Urena MD Hematoma of right hand Discharge Disposition: Discharged to home or Selfcare 09/11/2024 Travel from Last 3 Months Immunizations Immunization Administration Dates Next Due Covid-19, Mrna, Lnp-s, Pf, 30 Mcg/0.3 Ml Dose (Angus sparrow) 08/26/2020,08/04/2020 Influenza Vaccine greater than 3 yrs 02/11/2020, 02/27/2019 Influenza Vaccine, Quadrivalent, PF 04/11/2023 Influenza, Quadrivalent, Adjuvanted 03/22/2022 Influenza, Trivalent, Adjuvanted, PF 03/19/2024 Rotavirus Pentavalent Vaccine (RV5) 03/11/2014 Zoster Vaccine Recombinant 05/12/2020 Zoster Vaccine, live 03/04/2020 Family History Medical History Relation Name Comments No Known Problems Brother 1 No Known Problems Brother 2 Stroke Father Prostate Cancer Maternal Grandfather Cancer Mother Intestinal Heart Attack Mother Heart Attack Paternal Grandfather Relation Name Status Comments Brother 1 Alive Brother 2 Alive Father Maternal Grandfather Mother Paternal Grandfather Social History Tobacco Use Types Packs/Day Years Used Date Smoking Tobacco: Never Passive Smoke Exposure: Never Smokeless Tobacco: Never Tobacco Cessation:Counseling Given: No Alcohol Use Standard Drinks/Week Comments No 0 (1 standard drink = 0.6 oz pur e alcohol) Rarely [employer] Utilities Answer Date Recorded In the past 12 months has [employer], gas, oil, or water [employer] threatened to shut off services in your home? Patient declined 09/11/2024 Social Connection and Isolation Panel Answer Date Recorded In a typical week, how many times do you talk on the phone with family, friends, or neighbors? Patient declined 09/11/2024 How often do you get togethe r with friends or relatives? Patient declined 09/11/2024 How often do you attend jehovah's witness or cheondoism serv ices? Patient declined 09/11/2024 Do you belong to any clubs o r organizations such as jehovah's witness groups, unions, fraternal or athletic groups, or [...] Total Score - Questions 1-9 0 06/06 [facility] - Occupational Stress Questionnaire Answer Date Recorded [...] place to sleep or slept in a group home (including now)? No 07/18/2023 Housing Stability Vital Sign Answer Logan e Recorded In the last 12 months, was t here a time when you were not able to pay the mortgage or rent on time? No 09/11/2024 Number of Times Moved in the Last Year Not on fi le 09/11/2024 At any time in the past 12 m [facility], were you homeless or living in a group home (including now)? No 09/11/2024 Sexually Active Control Partners Comments Not Currently Sex and Gender Information Value Date Recorded Sex Assigned at Not on file Legal Sex Male 11:43 PM CDT Gender Identity Not on file Sexual Orientation Not on file Last Filed Vital Signs Vital Sign Reading Time Taken Comments Blood Pressure 130/64 10/01/2024 11:19 AM CDT Pulse 64 10/01/2024 11:19 AM CDT Temperature 36.3 C (97.3 F) 10/01/2024 11:19 AM CDT Respiratory Rate 12 09/12/2024 2:41 PM CDT Oxygen Saturation 97% 10/01/2024 11:19 AM CDT Inhaled Oxygen Concentration - - Weight 116.1 kg (256 lb) 10/01/2024 11:19 AM CDT Height 180.3 cm (5' 11) 10/01/2024 11:19 AM CDT Body Mass Index 35.7 10/01/2024 11:19 AM CDT Plan of Treatment Upcoming Encounters Date Type Department Care Team (Late st Contact Info) Description 01/01/2025 11:40 AM CDT Office Visit [facility] - Internal Medicine - [place] [address] [place] [address] Bryce Almeida MD [address] [place] [address] Health Maintenance Due Date Last Done Comments Hepatitis C Virus (HCV) Screening 1935 Respiratory Syncytial Virus (RSV) Immunization (Adult) (1 - 1-dose 75+ series) 09/03/2010 SARS-COV-2 Immunization ( season) 2024 03/26/2024, 04/11/2023, 02/16/2022, Additional history exists Diabetes: Foot Exam 10/16/2024 10/17/2023, 3 Influenza Immunization (#1) 02/03/202503/05, 04/11/2023, 03/22/2022, Additional history exists Diabetes: Hemoglobin A1c 04/02/2025 025, 02/20/2024, 11/01/2023, Additional history exists Diabetes: Nephropathy Screening 07/03/2025 07/03/2024, 11/01/2023, 10/21/2023, Additional history exists DTaP/Tdap/Td Immunization Discontinued 06/05/2009 TdaP Immunization Completed 06/05/2009 Rotavirus Immunization Aged Out 03/11/2014 No lo nger eligible based on patient's age to complete this topic Zoster Immunization Discontinued 05/12/2020, 0 Pneumococcal Immunization (50+ years) Completed 07/03/2020, 07/02/2019, 06/18/2014, Additional history exists Pneumococcal Immunization Combined Discontinued 07/03/2020, 07/02/2019, 06/18/2014, Additional history exists Diabetes: Eye Exam Discontinued Hepatitis B Immunization Aged Out No longer eligible based on patient's age to complete this topic Human Papillomavirus (HPV) Immunization Aged Out No longer eligible based on patient's age to complete this topic Meningococcal Immunization (ACWY) Aged Out No longer eligible based on patient's age to complete this topic Medical Devices Implanted Type Area Clam Dredger Device Identifier Shelf Expiration Date Model / Serial / Lot Stent Rx John Alpine 3.50 X 33mm - [id number] Implanted:Qty : 1 on 09/09/2016 by Micky Fried MD at [facility] IMPLANT Coronary [employer] 05/03/2018 [id number] / / [id number] Stent Rx John Alpine 2.75 X 15mm - [id number] Implanted:Qty : 1 on 10/27/2016 by Micky Fried MD at [facility] IMPLANT N/A: Coronary [employer] 08/22/2019 [id number] Procedures Procedure Name Priority Date/Time Associated Diagnosis Comments PROTIME (PT) (PROTHROMBIN TIME) 10/25/2024 12:00 AM CDT PROTIME (PT) (PROTHROMBIN TIME) 10/16/2024 12:00 AM CDT LIPID PANEL Routine 10/16/2024 12:00 AM CDT Mixed hyperlipidemia THYROXINE (T4) FREE Routine 10/16/2024 1 2:00 AM CDT Other specified hypothyroidism THYROID STIMULATING HORMONE (TSH) Routine 10/16/2024 12:00 AM CDT Other specified hypothyroidism HEPATIC FUNCTION PANEL Routine 10/16/2024 12:00 AM CDT Mixed hyperlipidemia POCT GLYCOSYLATED HEMOGLOBIN Routine 10/01/2024 11:36 AM CDT Type 2 diabetes mellitus with complication, without long-term current use of insulin (HCC) PROTIME (PT) (PROTHROMBIN TIME) Routine 09/27/2024 Anticoagulant long-term use 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 INR 2.4 SCAN 10/25/2024 us Bryce Almeida MD HEMATOLOGY ORDERABLES Final Result SCAN * THYROXINE (T4) FREE (10/16/2024 12:00 AM CDT) Blood us Bryce Almeida MD CHEMISTRY ORDERABLES Final Result Performing Organization Address [facility] de Phone Number SCAN * THYROID STIMULATING HORMONE (TSH) (10/16/2024 12:00 AM CDT) Blood us Bryce Almeida MD CHEMISTRY ORDERABLES Final Result Performing Organization Address [facility] de Phone Number SCAN * LIPID PANEL (10/16/2024 12:00 AM CDT) CHOLESTEROL 147 SCAN HDL CHOLESTEROL 48 SCAN LDL 81 SCAN Blood us Bryce Almeida MD CHEMISTRY ORDERABLES Final Result Performing Organization Address [facility] de Phone Number SCAN * HEPATIC FUNCTION PANEL (10/16/2024 12:00 AM CDT) Blood us Bryce Almeida MD CHEMISTRY ORDERABLES Final Result Performing Organization Address [facility] de Phone Number SCAN * POCT GLYCOSYLATED HEMOGLOBIN (10/01/2024 11:36 AM CDT) HGB-A1C 5.7 4 - 6 % 10/01/2024 11:3 6 AM CDT us Bryce Almeida MD POINT OF CARE TESTING ([facility]) Final Result * US THYROID (09/26/2024 8:44 AM CDT) Anatomical Region Laterality Modality BODY N/A Ultrasound 10/05/2024 9:28 AM CDT Impressions 10/05/2024 9:30 AM CDT IMPRESSION: Significantly suboptimal exam due to subclavicular position of the thyroid gland. Heterogeneous thyroid gland without definite sonographic evidence of focal thyroid nodule. The necessity of further imaging can be determined clinically. ACR TI-RADS Risk Category: Not applicable. REFERENCE: According to the ACR Thyroid Imaging, Reporting and Data System (TI-RADS): White Paper of the ACR TI-RADS Committee Oct, 2016 recommendations regarding the management of thyroid nodules are as follows: 1. TI-RADS 1: Risk of malignancy <2%, no FNA or follow up required. 2. TI-RADS 2: Risk of malignancy <2%, no FNA or follow up required. 3. TI-RADS 3: Risk of malignancy 2%-5%. Nodules 1.5 cm or greater follow up at 1, 3 and 5 years recommended, for nodules 2.5 cm or greater FNA recommended. 4. TI-RADS 4: Risk of malignancy 5%-20% Nodules 1.0 cm or greater follow up at 1, 2, 3 and 5 years recommended, for nodules 1.5 cm or greater FNA recommended 5. TI-RADS 5: Risk of malignancy >20%. Nodules 0.5 cm or greater annual follow up for 5 years recommended, for nodules 1.0 cm or greater FNA recommended. The ACT TI-RADS committee recommends targeting no more than two nodules for FNA. If three or more nodules meet criteria for FNA, the two with the most suspicious appearance based on ACR TI-RADS points should be sampled. Narrative 10/05/2024 9:30 AM CDT EXAM DESCRIPTION: US THYROID REASON FOR STUDY: rt. thyroid nodule follow-up for nodule seen on prior outside CT dated 09/08/2024, which is not available for comparison. TECHNIQUE: Ultrasound of the thyroid was performed with grayscale and color doppler. COMPARISON: None FINDINGS: The exam is significantly suboptimal due to subclavicular position of the thyroid gland. RIGHT: The right thyroid lobe measures 3.6 x 2.0 x 1.3 cm. There is a heterogeneous echotexture of the right thyroid lobe without definite sonographic evidence of focal thyroid nodule. LEFT: The left thyroid lobe measures 2.5 x 1.4 x 0.8 cm. There is a heterogeneous echotexture of the left thyroid lobe without definite sonographic evidence of focal thyroid nodule. ISTHMUS: The isthmus measures 0.7 cm in the AP dimension without definite sonographic evidence of focal thyroid nodule. OTHER: No other significant finding. THIS IS AN ELECTRONICALLY VERIFIED FINAL REPORT 10/05/2024 9:28 AM - Electronically signed by Chuck Mckinnon D.O. PS: PS Report ID: [id number] Reading Location: [id number] Procedure Note Chuck Mckinnon DO - 10/05/2024 EXAM DESCRIPTION: US THYROID REASON FOR STUDY: rt. thyroid nodule follow-up for nodule seen on prior outside CT dated 09/08/2024, which is not available for comparison. TECHNIQUE: Ultrasound of the thyroid was performed with grayscale and color doppler. COMPARISON: None FINDINGS: The exam is significantly suboptimal due to subclavicular position of the thyroid gland. RIGHT: The right thyroid lobe measures 3.6 x 2.0 x 1.3 cm. There is a heterogeneous echotexture of the right thyroid lobe without definite sonographic evidence of focal thyroid nodule. LEFT: The left thyroid lobe measures 2.5 x 1.4 x 0.8 cm. There is a heterogeneous echotexture of the left thyroid lobe without definite sonographic evidence of focal thyroid nodule. ISTHMUS: The isthmus measures 0.7 cm in the AP dimension without definite sonographic evidence of focal thyroid nodule. OTHER: No other significant finding. THIS IS AN ELECTRONICALLY VERIFIED FINAL REPORT 10/05/2024 9:28 AM - Electronically signed by Chuck Mckinnon D.O. PS: PS Report ID: [id number] Reading Location: [id number] IMPRESSION: Significantly suboptimal exam due to subclavicular position of the thyroid gland. Heterogeneous thyroid gland without definite sonographic evidence of focal thyroid nodule. The necessity of further imaging can be determined clinically. ACR TI-RADS Risk Category: Not applicable. REFERENCE: According to the ACR Thyroid Imaging, Reporting and Data System (TI-RADS): White Paper of the ACR TI-RADS Committee Oct, 2016 recommendations regarding the management of thyroid nodules are as follows: 1. TI-RADS 1: Risk of malignancy <2%, no FNA or follow up required. 2. TI-RADS 2: Risk of malignancy <2%, no FNA or follow up required. 3. TI-RADS 3: Risk of malignancy 2%-5%. Nodules 1.5 cm or greater follow up at 1, 3 and 5 years recommended, for nodules 2.5 cm or greater FNA recommended. 4. TI-RADS 4: Risk of malignancy 5%-20% Nodules 1.0 cm or greater follow up at 1, 2, 3 and 5 years recommended, for nodules 1.5 cm or greater FNA recommended 5. TI-RADS 5: Risk of malignancy >20%. Nodules 0.5 cm or greater annual follow up for 5 years recommended, for nodules 1.0 cm or greater FNA recommended. The ACT TI-RADS committee recommends targeting no more than two nodules for FNA. If three or more nodules meet criteria for FNA, the two with the most suspicious appearance based on ACR TI-RADS points should be sampled. us Bryce Almeida MD G US ORDERABLES Final Res ult * XR HAND 3 OR MORE VIEWS RIGHT (09/11/2024 12:24 PM CDT) Anatomical Region Laterality Modality UPPER EXTREMITY, hand Right Digital Ra diography 09/11/2024 1:54 PM CDT Impressions 09/11/2024 1:56 PM CDT IMPRESSION: No acute bony abnormality in the right hand. Moderate to severe osteoarthritic changes. Dorsal soft tissue swelling. Extensive arterial calcinosis. Narrative 09/11/2024 1:56 PM CDT EXAM DESCRIPTION: XR HAND 3 OR MORE VIEWS RIGHT REASON FOR STUDY: PAIN AND SWELLING IN RIGHT HAND X 4 DAYS AFTER GLF. LIMITED ROM OF 2ND DIGIT. TECHNIQUE: 3 radiographic view(s) of the right hand . COMPARISON: None FINDINGS: BONES/JOINTS: There is no acute fracture, malalignment or osseous abnormality. Moderate to severe osteoarthritic changes. SOFT TISSUES: Dorsal soft tissue swelling. Extensive arterial calcinosis. THIS IS AN ELECTRONICALLY VERIFIED FINAL REPORT 09/11/2024 1:54 PM - Electronically signed by Des Banda M.D. RB: ANGE Report ID: [id number] Reading Location: [id number] Procedure Note Des Banda MD - 09/11/2024 EXAM DESCRIPTION: XR HAND 3 OR MORE VIEWS RIGHT REASON FOR STUDY: PAIN AND SWELLING IN RIGHT HAND X 4 DAYS AFTER GLF. LIMITED ROM OF 2ND DIGIT. TECHNIQUE: 3 radiographic view(s) of the right hand . COMPARISON: None FINDINGS: BONES/JOINTS: There is no acute fracture, malalignment or osseous abnormality. Moderate to severe osteoarthritic changes. SOFT TISSUES: Dorsal soft tissue swelling. Extensive arterial calcinosis. THIS IS AN ELECTRONICALLY VERIFIED FINAL REPORT 09/11/2024 1:54 PM - Electronically signed by Des Banda M.D. RB: ANGE Report ID: [id number] Reading Location: [id number] IMPRESSION: No acute bony abnormality in the right hand. Moderate to severe osteoarthritic changes. Dorsal soft tissue swelling. Extensive arterial calcinosis. us Cam Urena MD IMG DIAGNOSTIC ORDERABLES Final Result * CMP (COMPREHENSIVE METABOLIC PANEL) (11/01/2023) Blood 11/01/2023 us Bryce Almeida MD CHEMISTRY ORDERABLES Final Result from Last 3 Months or Most Recently Relevant to Health Maintenance Insurance MEDICARE C [employer] Care Teams Control Systems Technician Relationship Specialty Start Date End Date Bryce Almeida MD [address] [place] [address] PCP - General Internal Medicine 07/21/15 Chelo Soriano MD [address] [place] [address] General Surgery 10/13/15 Annette Ibarra APRN, SPEECH PATHOLOGIST [address] [place] [address] Nurse Practitioner Advanced Practice Nurse 05/08/24
--- OUTSIDE RECORDS SUMMARY | 2024-12-07 19:25 | XMS_ITS | Encounter Summary ---
Author Organization [facility] Address [address] [place] [address] Phone Care Team Providers Care Bread Panner Name Role Phone Bryce Almeida MD Primary Care Provider hCelo Soriano MD Unavailable Annette Ibarra APRN, PUMP ROOM OPERATOR Unavailable Reason for Visit * Reason Comments Medication Refill Encounter Details Date Type Department Care Team (Late st Contact Info) Description 03/24/2022 Refill [facility] - Internal Medicine - [place] [address] [place] [address] Natalia Hernandez, [facility] [address] [place] [address] Medication Refill Social History Tobacco Use Types Packs/Day Years Used Date Smoking Tobacco: Never Smokeless Tobacco: Never Alcohol Use Standard Drinks/Week Comments No 0 (1 standard drink = 0.6 oz pur e alcohol) Rarely PHQ-2 Answer Date Recorded Total Score - Questions 1-9 0 04/0 06/2021 Sexually Active Control Partners Comments Not Currently Sex and Gender Information Value Date Recorded Sex Assigned at Not on file Legal Sex Male 11:43 PM CDT Gender Identity Not on file Sexual Orientation Not on file COVID-19 Exposure Response Date Recorded In the last 10 days, have yo u been in contact with someone who was confirmed or suspected to have Coronavirus/COVID-19? No / Unsure 03/22/2022 2:37 PM CDT documented as of this encounter Miscellaneous Notes * Telephone Encounter - Misty Soliman RN - 03/25/2022 9:17 AM CDT Medication failed the protocol, provider to review and approve the medication order if appropriate. Requested Prescriptions Pending Prescriptions Disp Refills losartan-hydrochlorothiazide (HYZAAR) 50-12.5 MG Tablet [Pharmacy Med Name: LOSARTAN/HCTZ TABS 50/12.5MG] 90 Tablet 3 Sig: TAKE 1 TABLET EVERY EVENING ANGIOTENSIN-II RECEPTOR BLOCKERS-DIURETICS COMBO PROTOCOL Failed - 03/24/2022 11:42 PM Failed - Serum potassium on record in past 12 months No results found for: POTASSIUM, POCTK Failed - Serum sodium on record in past 12 months No results found for: SODIUM Failed - GFR on record in past 12 months No results found for: GFRNA Passed - BP on record in the past year Clinician-entered: BP Readings from Last 3 Encounters: 03/22/22 116/56 12/21/21 122/56 09/21/21 126/46 Patient-entered: No data recorded Passed - Visit with relevant provider in past year or upcoming 90 days Recent Visits Date Type Provider Dept 03/22/22 Office Visit Bryce Almeida MD [facility] 12/21/21 Office Visit Bryce Almeida MD [facility] 09/21/21 Office Visit Bryce Almeida MD [facility] 09/03/21 Office Visit Bryce Almeida MD [facility] 06/23/21 Office Visit Bryce Almeida MD [facility] Showing recent visits within past 365 days and meeting all other requirements Future Appointments No visits were found meeting these conditions. Showing future appointments within next 90 days and meeting all other requirements documented in this encounter Plan of Treatment Upcoming Encounters Date Type Department Care Team (Erica st Contact Info) Description 01/01/2025 11:40 AM CDT Office Visit [facility] - Internal Medicine - [place] [address] [place] [id number] Bryce Almeida MD [address] [place] [address] documented as of this encounter Visit Diagnoses Not on filedocumented in this encounter Additional Health Concerns Infection Onset Date Last Indicated Resolved Time COVID - 19 Confirmed 03/12/2022 03/12/2022 022 12:16 AM CDT COVID - 19 06/15/2022 06/15/2022 06/25/2022 12:1 6 AM ELIGIBILITY CLERK Influenza 06/15/2022 06/15/2022 06/22/2022 12:1 6 AM ELIGIBILITY CLERK Respiratory Rule-Out 08/02/2023 08/02/2023 024 2:58 PM ELIGIBILITY CLERK Influenza 08/02/2023 08/02/2023 08/09/2023 12:1 6 AM ELIGIBILITY CLERK Respiratory Rule-Out 05/21/2024 05/21/2024 024 9:50 AM ELIGIBILITY CLERK COVID - 19 05/21/2024 05/21/2024 05/21/2024 9:49 AM ELIGIBILITY CLERK Assessment Noted Time PHQ-9 Depression Total Score: 0 06/15/19 21 3:00 PM ELIGIBILITY CLERK documented as of this encounter Care Teams Bread Panner Relationship Specialty Start Date End Date Bryce Almeida MD [address] [place] [address] PCP - General Internal Medicine 07/21/15 Chelo Soriano MD [address] [place] [address] General Surgery 10/13/15 Annette Ibarra APRN, PUMP ROOM OPERATOR [address] [place] [address] Nurse Practitioner Advanced Practice Nurse 05/08/24 documented as of this encounter
--- OUTSIDE RECORDS SUMMARY | 2024-12-07 19:25 | XMS_ITS | Encounter Summary ---
Author Organization [facility] Address [address] [place] [address] Phone Care Team Providers Care Dba Name Role Phone Bryce Almeida MD Primary Care Provider Chelo Soriano MD Unavailable Annette Ibarra APRN, FUNDRAISING DIRECTOR Unavailable Reason for Visit * Reason Comments Medication Refill Encounter Details Date Type Department Care Team (Late st Contact Info) Description 11/24/2020 [facility]ill [facility] [address] [place] [address] Bryce Almeida MD [address] [place] [address] Medication Refill Social History Tobacco Use Types Packs/Day Years Used Date Smoking Tobacco: Never Smokeless Tobacco: Never Alcohol Use Standard Drinks/Week Comments No 0 (1 standard drink = 0.6 oz pur e alcohol) Rarely PHQ-2 Answer Date Recorded Total Score - Questions 1-9 0 06/05 Sexually Active Control Partners Comments Not Currently [...] Visit [facility] - Internal Medicine [place] [address] [place] [phone] Bryce Almeida MD [address] [place] [address] documented as of this encounter Visit Diagnoses Not on filedocumented in this encounter Additional Health Concerns Infection Onset Date Last Indicated Resolved Time COVID - 19 Confirmed 03/12/2022 03/12/2022 022 12:16 AM CDT COVID - 19 06/15/2022 06/15/2022 06/25/2022 12:1 6 AM POLLS OR SURVEYS INTERVIEWER Influenza 06/15/2022 06/15/2022 06/22/2022 12:1 6 AM POLLS OR SURVEYS INTERVIEWER Respiratory Rule-Out 08/02/2023 08/02/2023 024 2:58 PM POLLS OR SURVEYS INTERVIEWER Influenza 08/02/2023 08/02/2023 08/09/2023 12:1 6 AM POLLS OR SURVEYS INTERVIEWER Respiratory Rule-Out 05/21/2024 05/21/2024 024 9:50 AM POLLS OR SURVEYS INTERVIEWER COVID - 19 05/21/2024 05/21/2024 05/21/2024 9:49 AM POLLS OR SURVEYS INTERVIEWER Assessment Noted Time PHQ-9 Depression Total Score: 0 06/15/19 21 3:00 PM POLLS OR SURVEYS INTERVIEWER documented as of this encounter Care Teams Dba Relationship Specialty Start Date End Date Bryce Almeida MD [address] [place] [address] PCP - General Internal Medicine 07/21/15 Chelo Soriano MD [address] [place] [address] General Surgery 10/13/15 Annette Ibarra APRN, FUNDRAISING DIRECTOR [address] [place] [address] Nurse Practitioner Advanced Practice Nurse 05/08/24 documented as of this encounter
--- OUTSIDE RECORDS SUMMARY | 2024-12-07 19:25 | XMS_ITS ---
Author Name [facility] Organization [facility] Address [address] [place] [address] Care Team Providers Care Neurocritical Care Physician Name Role Phone LEODAN CONWAY Primary Care Provider Unav ailable MALICK, COLBY Unavailable Unavailable MARIELLERENEA PETERSON Unavailable Unavailable Insurance Providers: All historical and current Section Date Range: From patient's date of to the date document was created. This section includes the names of all active insurance providers for the patient. Insurance Provider Type of Coverage Plan Name Start of Policy Coverage End of Policy Coverage Group Number Member ID Insurance Provider's Telephone Number Policy Allison's Name Patient's Relationship to Policy Allison [facility] ([facility] MEDICARE ADVANTAGE MCR ([facility] Jun 05, [id number] [id number] SHANEL KING VIANCA [facility] MEDICARE ADVANTAGE MCR ([facility] Jun 05, 2022 [phone] [id number] FERNANDO,CL VIANCA [facility] MEDICARE ADVANTAGE MCR ([facility] Jun 05, 2016 [id number] [phone] SHANEL KINGE PATIENT Selected Encounter This section includes the information on record at [place] for the Encounter. Date/Time Encounter Type Encounter Description Reason Provider Source Nov 15, 2024 01:00 PM OFFICE O/P EST MOD 30 MIN OPTOMETRY ICD-10-CM H25.813 Combined forms of age-related cataract, bilateral JUSTINKATHARINADEION ON E IHE Encounter Template Text not used by [place] Assessments - Encounter Diagnoses This section includes the primary and secondary diagnoses documented for the Encounter. Date/Time Primary/Secondary Diagnosis Diagnosis Name Provider Source Nov 15, 2024 01:59 PM PRIMARY Combined forms of age-related cataract, bilateral DONNELL COLON [facility] Nov 15, 2024 01:59 PM SECONDARY Ocular hypertension, right eye DEION BARAJAS ON E [facility] Nov 15, 2024 01:59 PM SECONDARY Other chronic allergic conjunctivitis DONNELL BEY [facility] Nov 15, 2024 01:59 PM SECONDARY [facility] Encounter Notes: All associated encounter notes This section contains the clinical notes associated to the Encounter. Date/Time Encounter Note(s) Provider Source Nov 15, 2024 01:36 PM OPTOMETRY NOTE: LOCAL TITLE: EYEGLASS PRESCRIPTION NOTE [facility] STANDARD TITLE: OPTOMETRY NOTE DATE OF NOTE: NOV 15, 2024@13:36 ENTRY DATE: NOV 15, 2024@13:36:51 AUTHOR: SHANIQUE BARAJAS COSIGNER: URGENCY: STATUS: COMPLETED EYEGLASS PRESCRIPTION NOTE ST[facility] Has ADDENDA DATE OF LAST EYE EXAM:NOV 15, 2024 Pair #1: OD: +1.75 -2.50 x 095 OS: +2.75 -1.75 x 095 Add: +2.50 LENS MATERIAL: Polycarbonate LENS TYPE: DVO, Other Add Ons: Yellow Tint included Additional Comments: Pair #2: OD: +4.25 -2.50 x 095 OS: +5.25 -1.75 x 095 Add: +2.50 LENS MATERIAL: Polycarbonate LENS TYPE: NVO Other Add Ons: Additional Comments: /adriana BARAJAS OD Staff Physician, Optometry Signed: 11/15/2024 13:49 11/15/2024 ADDENDUM STATUS: COMPLETED Ok for Antireflective on both pairs of glasses /es/ SHANIQUE BARAJAS, OD Staff Physician, Optometry Signed: 11/15/2024 15:29 SHANIQUE BARAJAS [facility] Nov 15, 2024 12:47 PM OPTOMETRY NOTE: LOCAL TITLE: OPTOMETRY NOTE STANDARD TITLE: OPTOMETRY NOTE DATE OF NOTE: NOV 15, 2024@12:47 ENTRY DATE: NOV 15, 2024@12:47:18 AUTHOR: SHANIQUE BARAJAS EXP COSIGNER: URGENCY: STATUS: COMPLETED Last seen: 11/24/2023 CC: 1. Watery eyes - (-)itching - doesn't bother pt too much 2. Blurry vision at near - likes having separate DVO & NVO pairs c photochromic Ocular meds: none Ocular ROS: 1. Cataracts OU 2. Presbyopia/Refractive error (-)ocular injuries (-)ocular surgeries/lasers/injection s Family OcHX: (-) blindness (-) glaucoma (-) AMD (+) RD, brother Cardiovascular ROS: no change from problem & medication lists CPRS Problem list, medications and allergies reviewed: CPRS Serology for Diabetes No GLUCOSE EO data found No HEMOGLOBIN A1C EO data found Cardiovascular BP: 165/76 (10/22/2015 15:17) Pulse: 50 (10/22/2015 15:17) Neuro: Orientation: Normal Psych: Mood/Affect: Normal Depression/suicide ideation: NO VISUAL ACUITY With correction Distance Visual Acuity Welding Machine Operator Gas OD: 20/25 OS: 20/20 Pupils PERRL OU (-)APD Welding Machine Operator Gas Confrontation FTFC OU Extra-Ocular Muscles Full OU Externals/adnexa: Unremarkable OU Refraction: 11/15/2024 Welding Machine Operator Gas OD: +1.75 -2.50 x 095 20/25 OS: +2.75 -1.75 x 095 20/20 Add: +2.50 Order placed: DVO c yellow tint, NVO SLIT LAMP EXAMINATION Lids/Lashes/Lacrimal Tr blepharitis OU Conjunctiva/Sclera White/quiet OU, chalasis OU Cornea Clear OU Ant Chamber Deep and quiet OU Iris Normal, (-)NVI OU Lens 2+ NS OU (OD>OS), tr cortical OU (OS>OD) Intraocular Pressures (Goldmann) 1 gtt fluress Date OD OS Time Meds 08/24/17 22 22 11:22 none 11/24/22 18 18 1038 none 11/24/23 21 20 1319 none Welding Machine Operator Gas 11/15/2024 23 21 1325 none Welding Machine Operator Gas RETINAL EVALUATION 1 phenyleph 2.5%, 1 trop 1% OU @ 13:28 DFE Dilated retinal exam Optic Nerve OD: 0.3 CDR Flat, pink, distinct (-)NVD, (+)PPA 360 OS: 0.3 CDR Flat, pink, distinct (-)NVD, (+)PPA 360 Vessels: 2/3 OU, (-)NVE OU Posterior Pole: OD: (-)Hemes (-)Exudate (-)CWS OS: (-)Hemes (-)Exudate (-)CWS Macula: OD: Flat, clear (-)CSME OS: Flat, clear (-)CSME, tr pigment mottling Periphery: OD: Flat and attached, CR scar @3:00, stable, reticular pigment OS: Flat and attached, reticular pigment Vitreous: (+)PVD OU Donnell Colon, Optometry Welding Machine Operator Gas participated in the care of this under my supervision. I personally examined the patient and provided the following assessment and plan: Assessment/Plan 11/15/2024 1. Cataracts OU - Mildly visually significant OD>OS - Defer CE until ADLs affected/BVAs 20/40 or worse - monitor 2. Allergic conjunctivitis OU - Episodic, symptoms>signs (watery>itchy) - Rx olopatadine 0.2% qday OU - Monitor 3. Ocular hypertension, mild OD - IOPs untreated today: - NRR appears healthy OU - angles appear open OU - monitor with IOP check at next visit - advised pt on importance of annual follow-up - consider additional testing if indicated 4. 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
--- OUTSIDE RECORDS SUMMARY | 2024-12-07 19:25 | XMS_ITS | Encounter Summary ---
Author Organization [facility] Address [address] [facility] [place] [address] Phone Care Team Providers Care Geek Squad Manager Name Role Phone Bryce Almeida MD Primary Care Provider [phone] Chelo Soriano MD Unavailable Annette Ibarra APRN, VAULT INSTALLER Unavailable Reason for Visit * Reason Comments Medication Refill Encounter Details Date Type Department Care Team (Late st Contact Info) Description 11/02/2020 Refill [facility] - Internal Medicine [place] [address] [place] [address] Bryce Almeida MD [address] [place] [address] Medication Refill Social History Tobacco [...] Telephone Encounter - Annette Dunlap RN - 11/03/2020 8:04 AM CDT Please review and sign. documented in this encounter Plan of Treatment Upcoming Encounters Date Type Department Care Team (Late st Contact Info) Description 01/01/2025 11:40 AM CDT Office Visit [facility] - Internal Medicine [place] [address] [place] [address] Bryce Almeida MD [address] [place] [address] documented as of this encounter Visit Diagnoses Not on filedocumented in this encounter Additional Health Concerns Infection Onset Date Last Indicated Resolved Time COVID - 19 Confirmed 03/12/2022 03/12/2022 022 12:16 AM CDT COVID - 19 06/15/2022 06/15/2022 06/25/2022 12:1 6 AM CRUISE GUIDE Influenza 06/15/2022 06/15/2022 06/22/2022 12:1 6 AM CRUISE GUIDE Respiratory Rule-Out 08/02/2023 08/02/2023 024 2:58 PM CRUISE GUIDE Influenza 08/02/2023 08/02/2023 08/09/2023 12:1 6 AM CRUISE GUIDE Respiratory Rule-Out 05/21/2024 05/21/2024 024 9:50 AM CRUISE GUIDE COVID - 19 05/21/2024 05/21/2024 05/21/2024 9:49 AM CRUISE GUIDE Assessment Noted Time PHQ-9 Depression Total Score: 0 06/15/19 21 3:00 PM CRUISE GUIDE documented as of this encounter Care Teams Geek Squad Manager Relationship Specialty Start Date End Date Bryce Almeida MD [address] [place] [address] PCP - General Internal Medicine 07/21/15 Chelo Soriano MD [address] [place] [address] General Surgery 10/13/15 Annette Ibarra APRN, VAULT INSTALLER [address] [place] [address] Nurse Practitioner Advanced Practice Nurse 05/08/24 documented as of this encounter
--- OUTSIDE RECORDS SUMMARY | 2024-12-07 19:25 | XMS_ITS | Clinical Summary ---
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 identified. Cervical spine: There is mild C3-4 anterolisthesis. Vertebral bodies are normal in height without evidence of acute fracture. Other than middle atlantoaxial joint osteoarthritis, the craniocervical junction appears normal. There is advanced degenerative disc disease. There is multilevel central canal stenosis, most pronounced and moderate at C6-7. There is advanced facet osteoarthritis at multiple levels. There is advanced uncovertebral joint osteoarthritis at C5-6 and C6-7 with the same degree of neural foraminal stenosis at these levels. There is atherosclerotic calcification of the carotid bifurcations. There is a right thyroid lobe nodule, partially imaged. Procedure Note Baljit Iraheta MD - 11/29/2024 EXAMINATION: CT HEAD CERVICAL SPINE WO CONTRAST HISTORY: trauma. See Reason for Exam TECHNIQUE: CT of the head and cervical spine were performed without contrast according to standard protocol. The examination was performed with the adjustment of mA according to the patient size and/or the use of Iterative Reconstruction Technique. FINDINGS: Comparison is made with a study from 09/08/2024 Head: No acute intra- or extra-axial fluid collections are identified. There is mild cerebral volume loss with associated ex vacuo ventricular dilatation. The basilar cisterns are patent. No mass effect or midline shift is seen. The odom-white matter differentiation is normal. Periventricular white matter hypoattenuation is indicative of chronic small vessel ischemic disease. There is vascular calcification of the carotid siphons. Visible portions of the orbits, paranasal sinuses, and mastoids appear normal. No acute fracture is identified. Cervical spine: There is mild C3-4 anterolisthesis. Vertebral bodies are normal in height without evidence of acute fracture. Other than middle atlantoaxial joint osteoarthritis, the craniocervical junction appears normal. There is advanced degenerative disc disease. There is multilevel central canal stenosis, most pronounced and moderate at C6-7. There is advanced facet osteoarthritis at multiple levels. There is advanced uncovertebral joint osteoarthritis at C5-6 and C6-7 with the same degree of neural foraminal stenosis at these levels. There is atherosclerotic calcification of the carotid bifurcations. There is a right thyroid lobe nodule, partially imaged. IMPRESSION: 1. No acute intracranial process. 2. No evidence of acute fracture in the cervical spine. DICTATION LOCATION: Location 1 - [facility] Kedar Kimball MD CT ORDERABLES Final Result * (ABNORMAL) COMPREHENSIVE METABOLIC PANEL (11/29/2024 6:32 AM CDT) SODIUM 137 136 - 145 mmol/L 11/29/2024 7:24 AM T [facility] - . [facility] POTASSIUM 3.9 3.5 - 5.0 mmol/L 11/29/2024 7:24 AM T [facility] - . [facility] CHLORIDE 106 98 - 107 mmol/L 11/29/2024 7:24 AM T [facility] - . [facility] CO2 20(L) 22 - 29 mmol/L 11/29/2024 7:24 AM T [facility] - . [facility] CALCIUM 8.5(L) 8.6 - 10.2 mg/dL 11/29/2024 7:24 AM T [facility] - . [facility] BUN 41(H) 8 - 23 mg/dL 11/29/2024 7:24 AM [facility] CREATININE 1.60(H) 0.67 - 1.17 mg/dL 11/29/2024 7:24 AM [facility] Comment:The GFR result is no t clinically significant on patients <18 or >70 years of age. GLUCOSE 116(H) 74 - 99 mg/dL 11/29/2024 7:24 AM [facility] TOTAL PROTEIN 5.8(L) 6.7 - 8.6 g/dL 11/29/2024 7:24 AM [facility] ALBUMIN 3.6 3.5 - 5.2 g/dL 11/29/2024 7:24 AM [facility] BILIRUBIN TOTAL 0.4 0.0 - 1.1 mg/dL 11/29/2024 7:24 AM [facility] ALKALINE PHOSPHATASE 85 40 - 129 U/L 11/29/2024 7:24 AM [facility] AST 19 <41 U/L 11/29/2024 7:24 AM [facility] ALT 10 <42 U/L 11/29/2024 7:24 AM [facility] GFR 41 mL/min/1.7 3 sq meter 11/29/2024 7:24 AM [facility] Comment:eGFR calculated with 2020 CKD-EPI equation. Vegetarian diet, extremely high or low muscle mass, and may affect results. Cystatin C with Glomerular Filtration Rate is a suitable alternative for these patients. ANION GAP 11 8 - 16 mmol/L 11/29/2024 7:24 AM [facility] Blood Venipuncture / Unknown 11/29/2024 6:32 AM CDT 11/29/2024 6:36 AM [facility] LABORATORY [facility] - 11/29/2024 7:24 AM T Samples containing indocyanine green cause interferences on Total and/or Direct Bilirubin and must not be measured. Kedar Kimball MD CHEMISTRY ORDERABLES Final Resul t [facility]# [id number] [address] [place] [address] * CT PELVIS WO CONTRAST (11/29/2024 5:19 AM CDT) Anatomical Region Laterality Modality Pelvis Computed Tomogra phy 11/29/2024 5:08 AM CDT Impressions 11/29/2024 5:30 AM CDT IMPRESSION: * Intramuscular hematoma involving left iliopsoas musculature. * Bilateral hip arthroplasty. * No acute fracture or dislocation. DICTATION LOCATION: Location 4 Narrative 11/29/2024 5:30 AM CDT EXAM: CT PELVIS WO CONTRAST, 11/29/2024 5:19 AM HISTORY: 89 years Male Hip trauma, fracture suspected, xray done, left hip pain TECHNIQUE: Axial CT of the pelvis without IV contrast. Oral contrast was not administered for the study. Sagittal and coronal reformats were generated. In accordance with CT policies/protocols and the ALARA principal, radiation dose reduction techniques (such as automated exposure control, adjustment of mA/kV according to patient's size and/or iterative reconstruction technique) were utilized for this examination. COMPARISONS: No relevant priors. FINDINGS: Bones: Bilateral hip arthroplasty. No periprosthetic fracture or hardware dislocation. Pelvic ring osseous structures are intact. Multilevel lumbar degenerative changes. Enlargement of left psoas and iliacus musculature suspicious for intramuscular hematoma. There is adjacent stranding. Bowel: No bowel obstruction or acute inflammatory changes. Vascular/aorta: Normal caliber abdominal aorta. Lymph nodes: No adenopathy. Peritoneum: Unremarkable. No free fluid. Bladder: Unremarkable. Reproductive: Unremarkable as visualized. Abdominal wall: No hernia identified. Procedure Note Oswald Gonzalez MD - 11/29/2024 EXAM: CT PELVIS WO CONTRAST, 11/29/2024 5:19 AM HISTORY: 89 years Male Hip trauma, fracture suspected, xray done, left hip pain TECHNIQUE: Axial CT of the pelvis without IV contrast. Oral contrast was not administered for the study. Sagittal and coronal reformats were generated. In accordance with CT policies/protocols and the ALARA principal, radiation dose reduction techniques (such as automated exposure control, adjustment of mA/kV according to patient's size and/or iterative reconstruction technique) were utilized for this examination. COMPARISONS: No relevant priors. FINDINGS: Bones: Bilateral hip arthroplasty. No periprosthetic fracture or hardware dislocation. Pelvic ring osseous structures are intact. Multilevel lumbar degenerative changes. Enlargement of left psoas and iliacus musculature suspicious for intramuscular hematoma. There is adjacent stranding. Bowel: No bowel obstruction or acute inflammatory changes. Vascular/aorta: Normal caliber abdominal aorta. Lymph nodes: No adenopathy. Peritoneum: Unremarkable. No free fluid. Bladder: Unremarkable. Reproductive: Unremarkable as visualized. Abdominal wall: No hernia identified. IMPRESSION: * Intramuscular hematoma involving left iliopsoas musculature. * Bilateral hip arthroplasty. * No acute fracture or dislocation. DICTATION LOCATION: Location [address] ORDERABLES Final Result * XR HIP 2 OR 3 VIEWS LT (11/29/2024 2:16 AM CDT) Anatomical Region Laterality Modality Lower Extremity Left Computed Radiogr aphy 11/29/2024 2:16 AM CDT Impressions 11/29/2024 9:18 AM CDT FINDINGS/IMPRESSION: Left hip arthroplasty in place without acute fracture or dislocation identified. Right total hip arthroplasty in place. There is heterotopic ossification about the lateral aspect of the right acetabulum. Osseous spurring and heterotopic ossification about the bilateral proximal femora. Advanced lower lumbar spondylosis. Pelvic surgical clips. DICTATION LOCATION: Location 4 Narrative 11/29/2024 9:18 AM CDT XR HIP 2 OR 3 VIEWS LT Ordering provider: [facility] History: See Reason for Exam. Fall, Comment: triage. Comparison: None Procedure Note Boaz Mitchell MD - 11/29/2024 XR HIP 2 OR 3 VIEWS LT Ordering provider: [facility] History: See Reason for Exam. Fall, Comment: triage. Comparison: None FINDINGS/IMPRESSION: Left hip arthroplasty in place without acute fracture or dislocation identified. Right total hip arthroplasty in place. There is heterotopic ossification about the lateral aspect of the right acetabulum. Osseous spurring and heterotopic ossification about the bilateral proximal femora. Advanced lower lumbar spondylosis. Pelvic surgical clips. DICTATION LOCATION: Location 4 Kedar Kimball MD DIAGNOSTIC IMAGING ORDERABLES Fi nal Result * EXTRA TUBE (GREEN) (09/08/2024 7:58 PM CDT) Blood Venipuncture / Unknown 09/08/2024 7:58 PM CDT 09/08/2024 8:00 PM CDT Horace Jiang MD CHEMISTRY ORDERABLES Final Re sult Performing Organization Address [facility] Co de Phone Number [facility]# [id number] [address] [place] [address] * EXTRA TUBE (LAV) (09/08/2024 7:58 PM CDT) Blood Venipuncture / Unknown 09/08/2024 7:58 PM CDT 09/08/2024 8:00 PM CDT Horace Jiang MD HEMATOLOGY ORDERABLES Final R esult Performing Organization Address [facility] Co de Phone Number [facility]# [id number] [address] [place] [address] from Last 3 Months Insurance [facility] [facility] Advance Directives For more information, please contact: [phone] * Full Code (Latest Code Status on File) Date Activated Date Inactivated Comments 11/29/2024 4:44 PM 12/04/2024 7:56 PM Care Teams Drying Oven Attendant Relationship Specialty Start Date End Date Bryce Almeida MD [address] [place] [address] PCP - General Internal Medicine 11/29/24
--- OUTSIDE RECORDS SUMMARY | 2024-12-07 19:25 | XMS_ITS | Clinical Summary ---
Author Organization [facility]ly [facility] Facility Address [address] [address] Care Team Providers Care Home Health Lpn Name Role Phone Bryce Almeida MD Primary Care Provider [phone] Allergies Active Allergy Reactions Criticality Noted Date Comments Other Other (see comments) 09/06/2016 LINENS/PLASTIC BED COVERING OVER MATTRESS/CERTAIN SHEETS WITH BLEACH CAUSES BLISTERS NEEDS STERILE BEDDING Povidone Iodine Hives,Rash,Other (se e comments) Low 12/15/2020 Medications amLODIPine (NORVASC) 5 MG tablet Take 2.5 mg by mouth in the morning. 1 04/13/20 29 Active beta carotene 56031 units capsule Take 7,500 Units by mouth daily Active carvedilol (COREG) 3.125 MG tablet Take 3.125 mg by mouth in the morning and 3.125 mg in the evening. 1 Active Cholecalciferol 50 MCG (2000 UT) capsule Take 1 capsule by mouth 1 (one) time each day Active clopidogrel (PLAVIX) 75 MG tablet Take 1 tablet by mouth 1 (one) time each day 1 Active levothyroxine (SYNTHROID, LEVOTHROID) 75 MCG tablet Take 1 tablet by mouth 1 (one) time each day 9 Active losartan (COZAAR) 50 MG tablet Take 75 mg by mouth at bed time 0 Active Multiple Vitamins-Minera ls (multivitamin with minerals) tablet Take 1 tablet by mouth daily 7 Active omeprazole (PriLOSEC) [address] capsule Take 1 capsule by mouth 1 (one) time each day 1 Active pyridoxine (B-6) 100 MG tablet Take 1 tablet by mouth 1 (one) time each day Active warfarin (COUMADIN) 6 MG tablet Take 5 mg by mouth 1 (one) time each day 9 Active furosemide (LASIX) 20 MG tablet Take 1 tablet (20 mg total) by mouth 1 (one) time each day 1 Active coenzyme Q-10 200 MG capsule Take 200 mg by mouth Active allopurinol (ZYLOPRIM) 100 MG tablet TAKE 1 TABLET IN THE MORNING AND 1 TABLET IN THE EVENING 180 tablet 3 3 Active benzonatate (TESSALON) 100 MG capsule Take 100 mg by mouth 3 (three) times a day if needed for cough Do not crush or chew. Active atorvastatin (LIPITOR) 40 MG tablet Take 40 mg by mouth 1 (one) time each day Active gabapentin (NEURONTIN) 300 MG capsule Take 300 mg by mouth 1 (one) time each day Active losartan-hydroC HLOROthiazide (HYZAAR) 50-12.5 MG per tablet Take 1 tablet by mouth in the morning. 4 Active aspirin (ST EMILY) 81 MG EC tablet Take 81 mg by mouth 3 Active isosorbide mononitrate (IMDUR) 30 MG 24 hr tablet Take 30 mg by mouth in the morning. 4 05/11/20 25 Active acetaminophen (TYLENOL) 325 MG tablet Take 650 mg by mouth in the morning. Active ezetimibe (ZETIA) 10 MG tablet Take 10 mg by mouth in the morning. 4 Active ferrous sulfate (Fe Tabs) 325 (65 Fe) MG EC tablet Take 1 tablet (325 mg total) by mouth 1 (one) time each day with breakfast Do not crush, chew, or split. 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 09/14/2020 Polyneuropathy due to type 2 diabetes mellitus 0 09/14/2020 Benign essential hypertension 04/06/2020 Coronary atherosclerosis 04/06/2020 Gastro-esophageal reflux disease without esophag itis 04/06/2020 Mixed hyperlipidemia 04/06/2020 Other specified hypothyroidism 04/06/2020 Renal disorder due to type 2 diabetes mellitus 1 06/06/2019 Ureteric stone of lower third of ureter 03/19/20 15 Encounters Date Type Department Care Team Description 11/26/2024 Office Communication [facility], [facility] 2 [facility] [place] [phone] Daryn Mendez MD 11/25/2024 Refill [facility] 2 [facility] [place] [phone] Iona Ralph MA 11/20/2024 Office Communication [facility] [address] [place] [phone] Daryn Mendez MD 10/03/2024 Office Communication [facility], [facility] 2 [facility] [place] [phone] Iona Ralph MA 10/03/2024 Refill [facility], [facility] 2 [facility] [place] [phone] Iona Ralph MA 10/03/2024 Orders Only [facility], [facility] [address] [place] [phone] Iona Ralph MA 10/03/2024 Office Communication [facility], [facility] 2 [facility] [place] [id number] Iona Ralph MA from Last 3 Months Immunizations Immunization Administration Dates Next Due Influenza Split High Dose Pr eservative Free IM 07/08/2019,03/18/2018,03/20/2015 Influenza TIV (IM) 02/11/2020,02/27/2019 Pfizer SARS-COV-2 08/26/2020,08/04/2020 Pneumococcal Conjugate 13-Valent 06/18/2014 Rotavirus Pentavalent 03/11/2014 Zoster 05/12/2020,03/04/2020 Family History Medical History Relation Comments Diabetes Father Hypertension Father Stroke Father Cancer Mother Heart disease Mother Relation Status Comments Father Mother Social History Tobacco Use Types Packs/Day Years Used Date Smoking Tobacco: Never Smokeless Tobacco: Never Tobacco Cessation:Counseling Given: Not Answered Alcohol Use Standard Drinks/Week Comments Yes 0 (1 standard drink = 0.6 oz pure alcohol) Alcoholic Drinks/day: Occasional social drink Sex and Gender Information Value Date Recorded Sex Assigned at Not on file Legal Sex Male 2:50 PM EDT Gender Identity Not on file Sexual Orientation Not on file Last Filed Vital Signs Vital Sign Reading Time Taken Comments Blood Pressure 130/58 07/03/2024 4:03 PM AIR CONDITIONING ENGINEER Pulse 58 07/03/2024 4:03 PM AIR CONDITIONING ENGINEER Temperature 36.7 C (98 F) 07/03/2024 4:03 PM AIR CONDITIONING ENGINEER Respiratory Rate 15 07/03/2024 4:03 PM AIR CONDITIONING ENGINEER Oxygen Saturation 98% 07/03/2024 4:03 PM AIR CONDITIONING ENGINEER Inhaled Oxygen Concentration - - Weight 113 kg (249 lb) 07/03/2024 4:03 PM AIR CONDITIONING ENGINEER Height 175.3 cm (5' 9) 12/18/2023 1:11 PM CDT Body Mass Index 36.77 12/18/2023 1:11 PM CDT Plan of Treatment Upcoming Encounters Date Type Department Care Team (Late st Contact Info) Description 01/07/2025 3:15 PM CDT Office Visit [facility], [facility] [address] [facility] [address] [place] [address] Daryn Mendez MD [address] [facility] [address] [place] [address] Health Maintenance Due Date Last Done Comments Pneumococcal Vaccine: 50+ Years (2 of 2 - PPSV23, PCV20, or PCV21) 08/13/2014 06/18/2014, 03/05/2006 Diabetes: Pedal Pulse Checked 10/29/2020 Diabetes: Sensory Foot Exam 10/29/2020 Diabetes: Visual Foot Exam 10/29/2020 Diabetes: Ophthalmology Exam 11/23/2024 11/24/2023 Diabetes: Hemoglobin A1C 12/31/2024 025, 02/20/2024, 09/27/2022 Influenza Vaccine (#1) 2025 4, 04/11/2023, 03/22/2022, Additional history exists Hepatitis B Vaccine Aged Out No longe r eligible based on patient's age to complete this topic Insurance [employer] MCR Adv PPO ([id number]) Care Teams Home Health Lpn Relationship Specialty Start Date End Date Bryce Almeida MD [address] [place] [address] PCP - General Internal Medicine 12/15/20
--- OUTSIDE RECORDS SUMMARY | 2024-12-07 19:25 | XMS_ITS | Encounter Summary ---
Author Organization [facility] Address [address] [facility] [place] [address] Phone Care Team Providers Care Sheet Folder Name Role Phone Bryce Almeida MD Primary Care Provider [phone] Chelo Soriano MD Unavailable Annette Ibarra APRN, [employer] MANAGER Unavailable Reason for Visit * Reason Comments Medication Refill Encounter Details Date Type Department Care Team (Late st Contact Info) Description 08/16/[address] [facility] - Internal Medicine [place] [address] [place] [address] Bryce Almeida MD [address] [place] [address] Medication Refill Social History Tobacco Use Types Packs/Day Years Used Date Smoking Tobacco: Never Smokeless Tobacco: Never Alcohol Use Standard Drinks/Week Comments No 0 (1 standard drink = 0.6 oz pur e alcohol) Rarely PHQ-2 Answer Date Recorded Total Score - Questions 1-9 0 06/05 Sex and Gender Information Value Date Recorded Sex Assigned at Not on file Legal Sex Male 11:43 PM CDT Gender Identity Not on file Sexual Orientation Not on file documented as of this encounter Miscellaneous Notes * Telephone Encounter - Annette Dunlap RN - 08/17/2020 11:47 AM CDT Please review and sign. documented in this encounter Plan of Treatment Upcoming Encounters Date Type Department Care Team (Late st Contact Info) Description 01/01/2025 11:40 AM CDT Office Visit [facility] - Internal Medicine - [place] [address] [place] [phone] Bryce Almeida MD [address] [place] [address] documented as of this encounter Visit Diagnoses Not on filedocumented in this encounter Additional Health Concerns Infection Onset Date Last Indicated Resolved Time COVID - 19 Confirmed 03/12/2022 03/12/2022 022 12:16 AM CDT COVID - 19 06/15/2022 06/15/2022 06/25/2022 12:1 6 AM PLATEN PRESS OPERATOR Influenza 06/15/2022 06/15/2022 06/22/2022 12:1 6 AM PLATEN PRESS OPERATOR Respiratory Rule-Out 08/02/2023 08/02/2023 024 2:58 PM PLATEN PRESS OPERATOR Influenza 08/02/2023 08/02/2023 08/09/2023 12:1 6 AM PLATEN PRESS OPERATOR Respiratory Rule-Out 05/21/2024 05/21/2024 024 9:50 AM PLATEN PRESS OPERATOR COVID - 19 05/21/2024 05/21/2024 05/21/2024 9:49 AM PLATEN PRESS OPERATOR Assessment Noted Time PHQ-9 Depression Total Score: 0 06/15/19 21 3:00 PM PLATEN PRESS OPERATOR documented as of this encounter Care Teams Sheet Folder Relationship Specialty Start Date End Date Bryce Almeida MD [address] [place] [address] PCP - General Internal Medicine 07/21/15 Chelo Soriano MD [address] [place] [address] General Surgery 10/13/15 Annette Ibarra APRN, [employer] MANAGER [address] [place] [address] Nurse Practitioner Advanced Practice Nurse 05/08/24 documented as of this encounter
--- OUTSIDE RECORDS SUMMARY | 2024-12-07 19:25 | XMS_ITS | Encounter Summary ---
Author Organization [facility] Address [address] [facility] [place] [address] Phone Care Team Providers Care Slip Feeder Name Role Phone Bryce Almeida MD Primary Care Provider Chelo Soriano MD Unavailable Annette Ibarra APRN, INTERVENTION NURSE Unavailable Reason for Visit * Reason Comments Medication Refill Encounter Details Date Type Department Care Team (Late st Contact Info) Description 09/26/2022 Refill [facility] [address] [place] [address] Bryce Almeida MD [address] [place] [address] Medication Refill Social History Tobacco Use Types Packs/Day Years Used Date Smoking Tobacco: Never Smokeless Tobacco: Never Alcohol Use Standard Drinks/Week Comments No 0 (1 standard drink = 0.6 oz pur e alcohol) Rarely PHQ-2 Answer Date Recorded Total Score - Questions 1-9 0 06/06 Sexually Active Control Partners Comments Not Currently Sex and Gender Information Value Date Recorded Sex Assigned at Not on file Legal Sex Male 11:43 PM CDT Gender Identity Not on file Sexual Orientation Not on file COVID-19 Exposure Response Date Recorded In the last 10 days, have harriet u been in contact with someone who was confirmed or suspected to have Coronavirus/COVID-19? No / Unsure 09/27/2022 2:05 PM CDT documented as of this encounter Miscellaneous Notes * Telephone Encounter - SolimanMisty RN - 09/27/2022 8:15 AM CDT Medication failed the protocol, provider to review and approve the medication order if appropriate. Requested Prescriptions Pending Prescriptions Disp Refills atorvastatin (LIPITOR) 40 MG Tablet [Pharmacy Med Name: ATORVASTATIN TABS 40MG] 90 Tablet 3 Sig: TAKE 1 TABLET DAILY Hmg CoA Reductase Inhibitors Protocol Failed - 09/26/2022 11:49 PM Failed - Lipid panel in past 12 months LDL Date Value Ref Range Status 12/14/2021 73 0 - 130 mg/dL Final 12/14/2021 73 0 - 130 mg/dL Final Passed - Visit with relevant provider in past 12 months or upcoming 90 days Recent Visits Date Type Provider Dept 08/01/22 Telemedicine Bryce Almeida MD [facility] [place] 06/27/22 Office Visit Bryce Almeida MD [facility] [place] 06/15/22 Telemedicine Natalia Hernandez PAC [facility] [place] 04/25/22 Office Visit Bryce Almeida MD [facility] [place] 03/22/22 Office Visit Byrce Almeida MD [facility] [place] 12/21/21 [facility] [place] Showing recent visits within past 365 days and meeting all other requirements Today's Visits Date Type Provider Dept 09/27/22 Appointment Bryce Almeida MD [facility] [place] Showing today's visits and meeting all other requirements Future Appointments No visits were found meeting these conditions. Showing future appointments within next 90 days and meeting all other requirements clopidogrel (PLAVIX) 75 MG Tablet [Pharmacy Med Name: CLOPIDOGREL BISULFATE TABS 75MG] 90 Tablet 3 Sig: TAKE 1 TABLET DAILY Plavix Protocol Failed - 09/26/2022 11:49 PM Failed - CBC on record in past 12 months WBC Date Value Ref Range Status 07/29/2019 [...] 97.4 (H) 82.0 - 96.0 fL Final MCH Date Value Ref Range Status 07/29/2019 32.3 (H) 26.0 - 32.0 pg Final MCHC Date Value Ref Range Status 07/29/2019 33.1 31.0 - 36.0 g/dL Final Passed - Visit with relevant provider in past 12 months or upcoming 90 days Recent Visits Date Type Provider Dept 08/01/22 Telemedicine Bryce Almeida MD [facility] [place] 06/27/22 Office Visit Bryce Almeida MD [facility] [place] 06/15/22 Telemedicine Natalia Hernandez PAC [facility] [place] 04/25/22 Office Visit Bryce Almeida MD [facility] [place] 03/22/22 Office Visit Bryce Almeida MD [facility] [place] 12/21/21 Office Visit Bryce Almeida MD [facility] [place] Showing recent visits within past 365 days and meeting all other requirements Today's Visits Date Type Provider Dept 09/27/22 Appointment Bryce Almeida MD [facility] [place] Showing today's visits and meeting all other requirements Future Appointments No visits were found meeting these conditions. Showing future appointments within next 90 days and meeting all other requirements documented in this encounter Plan of Treatment Upcoming Encounters Date Type Department Care Team (Late st Contact Info) Description 01/01/2025 11:40 AM CDT Office Visit [facility] - Internal Medicine [facility] [address] [place] [address] Bryce Almeida MD [address] [place] [address] documented as of this encounter Visit Diagnoses Not on filedocumented in this encounter Additional Health Concerns Infection Onset Date Last Indicated Resolved Time Respiratory Rule-Out 08/02/2023 08/02/2023 024 2:58 PM EARLY CHILDHOOD AIDE CLASSROOM Influenza 08/02/2023 08/02/2023 08/09/2023 12:1 6 AM EARLY CHILDHOOD AIDE CLASSROOM Respiratory Rule-Out 05/21/2024 05/21/2024 024 9:50 AM EARLY CHILDHOOD AIDE CLASSROOM COVID - 19 05/21/2024 05/21/2024 05/21/2024 9:49 AM EARLY CHILDHOOD AIDE CLASSROOM Assessment Noted Time PHQ-9 Depression Total Score: 0 06/27/19 2:00 PM EARLY CHILDHOOD AIDE CLASSROOM documented as of this encounter Care Teams Slip Feeder Relationship Specialty Start Date End Date Bryce Almeida MD [address] [place] [address] PCP - General Internal Medicine 07/21/15 Chelo Soriano MD [address] [place] [address] General Surgery 10/13/15 Annette Ibarra APRN, INTERVENTION NURSE [address] [place] [address] Nurse Practitioner Advanced Practice Nurse 05/08/24 documented as of this encounter
--- OUTSIDE RECORDS SUMMARY | 2024-12-07 19:25 | XMS_ITS | Encounter Summary ---
Author Organization [facility] Address [address] [place] [address] Phone Care Team Providers Care Director Of Analytics Name Role Phone Bryce Almeida MD Primary Care Provider Chelo Soriano MD Unavailable Annette Ibarra APRN, AG EQUIPMENT FIELD SERVICE TECHNICIAN Unavailable Reason for Visit * Reason Comments Medication Refill Encounter Details Date Type Department Care Team (Late st Contact Info) Description 04/05/2021 Refill [facility] [address] [place] [address] Bryce Almeida MD [address] [place] [address] Medication Refill Social History Tobacco [...] Exposure Response Date Recorded In the last month, have you been in contact with someone who was confirmed or suspected to have Coronavirus / COVID-19? No / Unsure 03/23/2021 1:22 PM CDT documented as of this encounter Miscellaneous Notes * Telephone Encounter - Annette Dunlap RN - 04/05/2021 7:56 AM CDT Medication failed the protocol, provider to review and approve the medication order if appropriate. Requested Prescriptions Pending Prescriptions Disp Refills atorvastatin (LIPITOR) 40 MG Tablet [Pharmacy Med Name: ATORVASTATIN TABS 40MG] 90 Tablet 3 Sig: TAKE 1 TABLET DAILY Hmg CoA Reductase Inhibitors Protocol Failed - 04/05/2021 12:13 AM Failed - Lipid panel in past 12 months LDL Date Value Ref Range Status 06/18/2020 64 0 - 130 mg/dL Final CHOLESTEROL Date Value Ref Range Status 06/18/2020 122 mg/dL Final Passed - Visit with relevant provider in past 12 months or upcoming 90 days Recent Visits Date Type Provider Dept 03/23/21 Office Visit Bryce Almeida MD [facility] 12/15/20 Office Visit Bryce Almeida MD [facility] 09/14/20 Office Visit Bryce Almeida MD [facility] 06/15/20 Office Visit Bryce Almeida MD [facility] 04/06/20 Telemedicine Bryce Almeida MD [facility] Showing recent visits within past 365 days and meeting all other requirements Future Appointments Date Type Provider Dept 06/23/21 Appointment Bryce Almeida MD [facility] Showing future appointments within next 90 days and meeting all other requirements clopidogrel (PLAVIX) 75 MG Tablet [Pharmacy Med Name: CLOPIDOGREL BISULFATE TABS 75MG] 90 Tablet 3 Sig: TAKE 1 TABLET DAILY Plavix Protocol Failed - 04/05/2021 12:13 AM Failed - CBC on record in past [...] 31.0 - 36.0 g/dL Final Failed - Active on medication list Passed - Visit with relevant provider in past 12 months or upcoming 90 days Recent Visits Date Type Provider Dept 03/23/21 Office Visit Bryce Almeida MD [facility] 12/15/20 Office Visit Bryce Almeida MD [facility] [place] 09/14/20 Office Visit Bryce Almeida MD [facility] [place] 06/15/20 Office Visit Bryce Almeida MD [facility] [place] 04/06/20 Telemedicine Bryce Almeida MD [facility] Showing recent visits within past 365 days and meeting all other requirements Future Appointments Date Type Provider Dept 06/23/21 Appointment Bryce Almeida MD [facility] Showing future appointments within next 90 days and meeting all other requirements documented in this encounter Plan of Treatment Upcoming Encounters Date Type Department Care Team (Late st Contact Info) Description 01/01/2025 11:40 AM CDT Office Visit [facility] - Internal Medicine - [place] [address] [place] [id number] Bryce Almeida MD [address] [place] [address] documented as of this encounter Visit Diagnoses Not on filedocumented in this encounter Additional Health Concerns Infection Onset Date Last Indicated Resolved Time COVID - 19 Confirmed 03/12/2022 03/12/2022 022 12:16 AM CDT COVID - 19 06/15/2022 06/15/2022 06/25/2022 12:1 6 AM WEAPONS AND TACTICS INSTRUCTOR Influenza 06/15/2022 06/15/2022 06/22/2022 12:1 6 AM WEAPONS AND TACTICS INSTRUCTOR Respiratory Rule-Out 08/02/2023 08/02/2023 024 2:58 PM WEAPONS AND TACTICS INSTRUCTOR Influenza 08/02/2023 08/02/2023 08/09/2023 12:1 6 AM WEAPONS AND TACTICS INSTRUCTOR Respiratory Rule-Out 05/21/2024 05/21/2024 024 9:50 AM WEAPONS AND TACTICS INSTRUCTOR COVID - 19 05/21/2024 05/21/2024 05/21/2024 9:49 AM WEAPONS AND TACTICS INSTRUCTOR Assessment Noted Time PHQ-9 Depression Total Score: 0 06/15/19 21 3:00 PM WEAPONS AND TACTICS INSTRUCTOR documented as of this encounter Care Teams Director Of Analytics Relationship Specialty Start Date End Date Bryce Almeida MD [address] [place] [address] PCP - General Internal Medicine 07/21/15 Chelo Soriano MD [address] [place] [address] General Surgery 10/13/15 Annette Ibarra APRN, AG EQUIPMENT FIELD SERVICE TECHNICIAN [address] [place] [address] Nurse Practitioner Advanced Practice Nurse 05/08/24 documented as of this encounter
--- OUTSIDE RECORDS SUMMARY | 2024-12-07 19:25 | XMS_ITS | Encounter Summary ---
Author Organization [facility] Address [address] [place] [address] Phone Care Team Providers Care I&C Technician Name Role Phone Bryce Almeida MD Primary Care Provider Chelo Soriano MD Unavailable Annette Ibarra APRN, RUBBING BED OPERATOR Unavailable Reason for Visit * Reason Comments Medication Refill Encounter Details Date Type Department Care Team (Late st Contact Info) Description 09/03/2020 Refill [facility] [address] [place] [address] Bryce Almeida MD [address] [place] [address] Medication Refill Social History Tobacco [...] [facility] - Internal Medicine - [place] [address] [place] [id number] Bryce Almeida MD [address] [place] [address] documented as of this encounter Visit Diagnoses Not on filedocumented in this encounter Additional Health Concerns Infection Onset Date Last Indicated Resolved Time COVID - 19 Confirmed 03/12/2022 03/12/2022 022 12:16 AM CDT COVID - 19 06/15/2022 06/15/2022 06/25/2022 12:1 6 AM SENIOR SERVICE AIDE Influenza 06/15/2022 06/15/2022 06/22/2022 12:1 6 AM SENIOR SERVICE AIDE Respiratory Rule-Out 08/02/2023 08/02/2023 024 2:58 PM SENIOR SERVICE AIDE Influenza 08/02/2023 08/02/2023 08/09/2023 12:1 6 AM SENIOR SERVICE AIDE Respiratory Rule-Out 05/21/2024 05/21/2024 024 9:50 AM SENIOR SERVICE AIDE COVID - 19 05/21/2024 05/21/2024 05/21/2024 9:49 AM SENIOR SERVICE AIDE Assessment Noted Time PHQ-9 Depression Total Score: 0 06/15/19 21 3:00 PM SENIOR SERVICE AIDE documented as of this encounter Care Teams I&C Technician Relationship Specialty Start Date End Date Bryce Almeida MD [address] [place] [address] PCP - General Internal Medicine 07/21/15 Chelo Soriano MD [address] [place] [address] General Surgery 10/13/15 Annette Ibarra APRN, RUBBING BED OPERATOR [address] [place] [address] Nurse Practitioner Advanced Practice Nurse 05/08/24 documented as of this encounter
--- OUTSIDE RECORDS SUMMARY | 2024-12-07 19:25 | XMS_ITS | Encounter Summary ---
Author Organization [facility] Address [address] [facility] [place] [address] Phone Care Team Providers Care Dog Warden Name Role Phone Bryce Almeida MD Primary Care Provider [phone] Chelo Soriano MD Unavailable [phone] Annette Ibarra APRN, MILLINERY DESIGNER Unavailable Reason for Visit * Reason Comments Medication Refill Encounter Details Date Type Department Care Team (Late st Contact Info) Description 10/02/2020 Refill [facility] - [facility] Medicine [place] [address] [place] [address] Bryce Almeida MD [address] [place] [address] Medication Refill Social History Tobacco [...] have Coronavirus / COVID-19? No / Unsure 09/14/2020 1:42 PM CDT documented as of this encounter Miscellaneous Notes * Telephone Encounter - Machelle Benítez RN - 10/05/2020 8:37 AM CDT Per nursing clinical judgement, provider to review and approve the medication(s) order(s) if appropriate. Requested Prescriptions Pending Prescriptions Disp Refills clopidogrel (PLAVIX) 75 MG Tablet [Pharmacy Med Name: CLOPIDOGREL BISULFATE TABS 75MG] 90 Tablet 3 Sig: TAKE 1 TABLET DAILY Plavix Protocol Failed - 10/02/2020 11:51 PM Failed - CBC on record in [...] 31.0 - 36.0 g/dL Final Failed - Serum creatinine on record in the past year CREATININE, BLOOD Date Value Ref Range Status 07/29/2019 1.40 (H) 0.80 - 1.30 mg/dL Final Failed - No interacting PPI on medication list or not on PPI Passed - Visit with relevant provider in past 12 months or upcoming 90 days Recent Visits Date Type Provider Dept 09/14/20 Office Visit Bryce Almeida MD [facility] 06/15/20 Office Visit Bryce Almeida MD [facility] 04/06/20 Telemedicine Bryce Almeida MD [facility] Showing recent visits within past 365 days and meeting all other requirements Future Appointments Date Type Provider Dept 12/15/20 Appointment Bryce Almeida MD [facility] Showing future appointments within next 90 days and meeting all other requirements atorvastatin (LIPITOR) 40 MG Tablet [Pharmacy Med Name: ATORVASTATIN TABS 40MG] 90 Tablet 3 Sig: TAKE 1 TABLET DAILY Hmg CoA Reductase Inhibitors Protocol Failed - 10/02/2020 11:51 PM Failed - Lipid panel in past 12 months LDL Date Value Ref Range Status 06/18/2020 64 0 - 130 mg/dL Final CHOLESTEROL Date Value Ref Range Status 06/18/2020 122 mg/dL Final Passed - Visit with relevant provider in past 12 months or upcoming 90 days Recent Visits Date Type Provider Dept 09/14/20 Office Visit Bryce Almeida MD [facility] 06/15/20 Office Visit Bryce Almeida MD [facility] 04/06/20 Telemedicine Bryce Almeida MD [facility] Showing recent visits within past 365 days and meeting all other requirements Future Appointments Date Type Provider Dept 12/15/20 Appointment Bryce Almeida MD [facility] Showing future appointments within next 90 days and meeting all other requirements documented in this encounter Plan of Treatment Upcoming Encounters Date Type Department Care Team (Late st Contact Info) Description 01/01/2025 11:40 AM CDT Office Visit [facility] - Internal Medicine - [place] [address] [place] [address] Bryce Almeida MD [address] [place] [address] documented as of this encounter Visit Diagnoses Not on filedocumented in this encounter Additional Health Concerns Infection Onset Date Last Indicated Resolved Time COVID - 19 Confirmed 03/12/2022 03/12/2022 022 12:16 AM CDT COVID - 19 06/15/2022 06/15/2022 06/25/2022 12:1 6 AM WOOD FURNITURE ASSEMBLER Influenza 06/15/2022 06/15/2022 06/22/2022 12:1 6 AM WOOD FURNITURE ASSEMBLER Respiratory Rule-Out 08/02/2023 08/02/2023 024 2:58 PM WOOD FURNITURE ASSEMBLER Influenza 08/02/2023 08/02/2023 08/09/2023 12:1 6 AM WOOD FURNITURE ASSEMBLER Respiratory Rule-Out 05/21/2024 05/21/2024 024 9:50 AM WOOD FURNITURE ASSEMBLER COVID - 19 05/21/2024 05/21/2024 05/21/2024 9:49 AM WOOD FURNITURE ASSEMBLER Assessment Noted Time PHQ-9 Depression Total Score: 0 06/15/19 3:00 PM WOOD FURNITURE ASSEMBLER documented as of this encounter Care Teams Dog Warden Relationship Specialty Start Date End Date Bryce Almeida MD [address] [place] [address] PCP - General Internal Medicine 07/21/15 Chelo Soriano MD [address] [place] [address] General Surgery 10/13/15 Annette Ibarra APRN, MILLINERY DESIGNER [address] [place] [address] Nurse Practitioner Advanced Practice Nurse 05/08/24 documented as of this encounter
[2024-12-07 20:10] LABS: Alanine Aminotransferase 18 U/L (6-50); Albumin Level 3.2 g/dL (3.5-5.1); Alkaline Phosphatase 75 U/L (38-126); Anion Gap 8 mmol/L (4-12); Aspartate Amino Transferase 25 U/L (17-59); Bilirubin,Total 0.9 mg/dL (0.2-1.3); Blood Urea Nitrogen 56 mg/dL (9-20); Calcium 8.6 mg/dL (8.4-10.2); Carbon Dioxide 23 mmol/L (22-30); Chloride 105 mmol/L (98-107); Estimated Glomerular Filt Rate 47; Glucose 115 mg/dL (65-110); Potassium 4.5 mmol/L (3.4-5.0); Sodium 136 mmol/L (137-145); Total Protein 5.7 g/dL (6.3-8.2)
[2024-12-07 20:14] LABS: INR 1.1; Prothrombin Time 14.8 Seconds (11.1-14.7)
== END 2024-12-07 19:09 | disposition home or self-care (01) ==
LOC: ANHLAB 19:22
PROVIDERS: Visit Provider Internal Medicine
DX: D64.9 Anemia, unspecified (principal)
CPT/HCPCS: 36415; 80053; 85610